=== PATIENT | female | born 1990 | race Caucasian/White ===

== ENCOUNTER 2016-07-13 09:00 | Inpatient (IN) | payer OTHER ==
--- NOTE | ~2016-07-13 | HP ---
Unit #: [id number] #: [id number] Patient: TIA VALLECILLO [id number] [place] [address] [id number] MR#: [id number] NAME: TIA VALLECILLO. ROOM: P173 Age: 25 Sex: F Admission Date: 07/13/2016 : 1990 Attending Physician: Dagoberto Jeter M.D. Admitting Physician: Dagoberto Jeter M.D. Primary Care Physician: Primary Care Physician No HISTORY AND PHYSICAL HISTORY OF PRESENT ILLNESS Tia is a 25 year old admitted to [facility] because of her continued poly illicit substance abuse which includes heroin, benzodiazepines and marijuana. She has had other admissions to this facility for the same. PAST MEDICAL HISTORY 1. Long history of poly illicit substance abuse to include IV heroin. 2. Hepatitis C. PAST SURGICAL HISTORY Nothing reported. ALLERGIES No known drug allergies. SOCIAL HISTORY Smokes one pack per day. Denies alcohol. Admits to a long history of opioid abuse to include IV heroin. She also abuses benzodiazepines. FAMILY HISTORY Medically noncontributory. REVIEW OF SYSTEMS CONSTITUTIONAL: No fever or chills. HEENT: Denies any sore throat, ear pain or runny nose. CARDIOVASCULAR: Denies chest pain, irregular heart rhythm or palpitations. CHEST: Denies shortness of breath or cough. No hemoptysis. GASTROINTESTINAL: Denies nausea, vomiting, diarrhea or chronic constipation. ENDOCRINE: Denies history of increased thirst or urination. No recent significant weight loss or gain. GENITOURINARY: Denies dysuria, frequency, or hematuria. SKIN: Denies any rashes. HEMATOLOGIC: Denies history of increased bleeding or bruising. MUSCULOSKELETAL: Denies any hot, swollen joints. No generalized muscle pain. NEUROLOGIC: Denies problems with vision or speech. No frequent, severe headaches. No numbness, tingling or weakness in any extremities. Denies loss of bladder or bowel control. CURRENT MEDICATIONS Detox protocol Unit #: [id number] #: [id number] Patient: TIA VALLECILLO PHYSICAL EXAMINATION GENERAL: Alert, well-nourished, in no apparent distress. VITAL SIGNS: Blood pressure 144/86, heart rate 76, respirations 16, temperature 98.6. WEIGHT: 197 pounds. HEIGHT: 5'9". SKIN: Warm and dry without rash or lesion. HEENT: Normocephalic. TMs not viewed. Oral and nasal passages clear. Conjunctivae clear. Pupils equal, round and reactive to light and accommodation. Extraocular movements intact. NECK: Supple without lymphadenopathy or thyromegaly. HEART: Regular rate and rhythm without murmur. LUNGS: Clear. ABDOMEN: Soft, nontender. : Not done. EXTREMITIES: No evidence of cyanosis, clubbing or edema. Moves all extremities without focal deficit. NEUROLOGICAL: Grossly within normal limits. Cranial Nerves: II: Visual williamson are intact. III, IV AND : Extraocular movements are intact. Pupils are equal, round and reactive to light. V: Facial sensation is grossly normal. VII: Facial movements and expression are normal. VIII: Auditory acuity grossly intact. IX, X: Uvula is midline. Phonation is normal. XI: Patient shrugs shoulders and turns head normally. XII: Tongue protrudes in the midline. Sensory and Motor Function: Sensory and motor sensation is grossly normal. Motor: moves all extremities well. Coordination: Gait is normal. Deep Tendon Reflexes: Intact. IMPRESSION Psychiatric admission RECOMMENDATIONS PSYCHIATRIC: Per psychiatrist. MEDICAL: I see no contraindications to participating in facility's activities. MEDICAL PROGNOSIS Good. MEDICAL CONDITION Stable. Dictated by... Concha Cabrera PNiharikaANiharika-Tameka. for Parth Gray/allen TD: 07/14/2016 01:18 JOB #: [id number] Unit #: [id number] #: [id number] Patient: TIA VALLECILLO HISTORY AND PHYSICAL Page 1 of 1 X Concha Cabrera HISTORY AND PHYSICAL
--- NOTE | ~2016-07-13 | DS ---
Unit #: [id number] #: [id number] Patient: TIA VALLECILLO [id number] [place] [address] [id number] MR#: [id number] NAME: TIA VALLECILLO. ROOM: P173 Age: 26 Sex: F Admission Date: 07/13/2016 : 1990 Discharge Date: 07/15/2016 Attending Physician: Dagoberto Jeter M.D. Primary Care Physician: Primary Care Physician No DISCHARGE SUMMARY REASON FOR ADMISSION Kate is a 26-year-old woman with a history of polysubstance dependence, who had relapsed on heroin with the occasional use of illicit benzodiazepines and cannabis. She had vague suicidal ideation with no specific plan or intent and was admitted for detox. DIAGNOSTIC STUDIES LABORATORY RESULTS: Please see hospital chart. HOSPITAL COURSE The patient was admitted and placed on the opioid detox protocol. Benzodiazepine detox symptoms were not noted and an antidepressant medication was declined by the patient. She had made plans to go to the [facility] in [facility] at the time of discharge and had completed detox with no significant adverse effects. DISCHARGE DIAGNOSES AXIS I: Opioid dependence withdrawal, uncomplicated; benzodiazepine abuse. AXIS II: No diagnosis. AXIS III: Polysubstance withdrawal, hepatitis C. AXIS IV: AXIS V: DISCHARGE INSTRUCTIONS Follow up with [facility]. DISCHARGE MEDICATIONS None. CONDITION AT DISCHARGE Fair. PROGNOSIS Fair. DIET AND ACTIVITY Ad jenni. Dictated by... Dagoberto Jeter M.D. Unit #: [id number] #: [id number] Patient: TIA VALLECILLO [facility]/modl TD: 09/17/2016 14:51 JOB #: [id number] DISCHARGE SUMMARY Page 1 of 1 X Dagoberto Jeter MD X DISCHARGE SUMMARY
--- NOTE | ~2016-07-13 | PA ---
Unit #: [id number] #: [id number] Patient: TIA VALLECILLO [id number] [place] [address] [id number] I MR#: [id number] NAME: TIA VALLECILLO. ROOM: P173 Age: 26 Sex: F Admission Date: 07/13/2016 : 1990 Date of Assessment: 07/14/2016 Attending Physician: Dagoberto Jeter M.D. Admitting Physician: Dagoberto Jeter M.D. Primary Care Physician: Primary Care Physician No PSYCHIATRIC ASSESSMENT DATE OF SERVICE 07/14/2016. INFORMANTS The patient reliable; OLOP, reliable. CHIEF COMPLAINT Ongoing substance abuse. HISTORY OF PRESENT ILLNESS Ms. Vallecillo is a 26-year-old woman with one previous admission, who reports that she is a daily heroin user and has been using illicit alprazolam and marijuana as well. She had suicidal ideation with no specific plan and was admitted for detox. PAST PSYCHIATRIC HISTORY Last admission was in 08/2014. FAMILY PSYCHIATRIC HISTORY The patient denies a family history of mental illness or substance abuse. SOCIAL HISTORY Please see previous assessments. PAST MEDICAL HISTORY No chronic medical problems. MEDICATIONS None. ALLERGIES No known medication allergies. SUBSTANCE ABUSE HISTORY Please see previous assessments for her extensive history of chemical dependence. MENTAL STATUS EXAMINATION The patient presented as a mildly disheveled woman, who appeared her stated age. She was cooperative with the examination. Her speech was spontaneous and easily understood. Musculoskeletal examination was calm. Her mood was irritable with a congruent affect. She was alert and fully oriented. Her memory and concentration were fair. Her thought processes Unit #: [id number] #: [id number] Patient: TIA VALLECILLO were goal directed with no active psychosis. She denied suicidal ideation, intent, or plan. Insight and judgment, fair. Fund of knowledge and abstraction, fair. ASSETS AND LIABILITIES The patient is in fairly good health and knows local resources. Liabilities include difficulty maintaining sobriety, unstable housing, and income. ADMITTING DIAGNOSES AXIS I: Opiate dependence withdrawal, uncomplicated; benzodiazepine abuse. AXIS II: No diagnosis. AXIS III: Polysubstance withdrawal, hepatitis C. AXIS IV: AXIS V: PSYCHIATRIC PLAN The patient was admitted and placed on the opioid detox protocol. She will be monitored for benzodiazepine detox symptoms and provided as needed. She will enroll in dual diagnosis groups and activities. TREATMENT GOALS Resolution of intoxication, improvement in insight, and improvement in coping skills. DISCHARGE PLANNING Follow up with chemical dependence programing through community mental health. ESTIMATED LENGTH OF STAY 5 days. Dictated by... Dagoberto Jeter M.D. BLAIR/lorenzo TD: 09/17/2016 14:48 JOB #: [id number] PSYCHIATRIC ASSESSMENT Page 1 of 1 X Dagoberto Jeter MD X PSYCHIATRIC ASSESSMENT
[~2016-07-13 09:00] MED LIST: BACTRIM DS TABL1 TA1 PO; CLEOCIN PO; TYLENOL #3 PO; ZITHROMAX1 G/PKT PO
[2016-07-14 09:43] LABS: URINE APPEARANCE CLEAR; URINE BILIRUBIN NEG (NEG); URINE BLOOD NEG (NEG); URINE COLOR YELLOW; URINE GLUCOSE NEG (NEG); URINE KETONE NEG (NEG); URINE LEUKOCYTE ESTERASE 2+ (NEG); URINE NITRATE NEG (NEG); URINE PROTEIN NEG (NEG); URINE SPECIFIC GRAVITY 1.011 (1.003-1.035)
[2016-07-14 09:46] LABS: U HYALINE CASTS AUWI 0-2 /[LPF]
[2016-07-14 09:56] LABS: URINE SQUAMOUS EPITHELIAL CELL FEW /[HPF]
[2016-07-14 09:58] LABS: URINE BACTERIA AUWI NEG (NEGATIVE)
[2016-07-14 10:30] LABS: AMPHETAMINE NEG (NEG); BARBITURATES NEG (NEG); BENZODIAZEPINES NEG (NEG); COCAINE NEG (NEG); MARIJUANA POS (NEG); OPIATES NEG (NEG); TRICYCLIC ANTIDEPRESSANTS NEG (NEG); U METHADONE NEG (NEG)
== END 2016-07-15 13:30 | disposition home or self-care (01) | DRG 897 ==
LOC: P1E 13:46
PROVIDERS: Psychiatry & Neurology Psychiatry
PROC: HZ2ZZZZ Detoxification Services for Substance Abuse Treatment (ICD-10-PCS; principal; 2016-07-13)
DX: F11.23 Opioid dependence with withdrawal (principal); F13.10 Sedative, hypnotic or anxiolytic abuse, uncomplicated; B19.20 Unspecified viral hepatitis C without hepatic coma; F17.210 Nicotine dependence, cigarettes, uncomplicated
CPT/HCPCS: 80307; 81003

== ENCOUNTER 2016-07-17 18:29 | Emergency (ER) | payer OTHER ==
--- NOTE | ~2016-07-17 | CR63 ---
[facility] A Service of [facility] & [facility] RADIOLOGY TEXT RESULTS PATIENT: TIA VALLECILLO LOCATION: [facility] : [birth year] UNIT #: [id number] AGE: [address]: Concha Joy APRN SEX: F ORDER DR: [id number] [facility] [address] [facility] [address] [facility] [address] [facility] [place], [place] [address] [id number] MR#: [id number] Acc #: [id number] NAME: TIA VALLECILLO : 1990 SEX: F STUDY DATE/TIME: 07/17/2016 22:03 UNIT: [facility] ROOM: STUDY DESCRIPTION: CR Chest 2 View Attending Physician: Concha Joy A.P.R.N. Ordering Physician: Concha Joy A.P.R.N. Primary Care Physician: No Primary Care Physician MEDICAL IMAGING REPORT This report is preliminary unless electronic signature is present EXAM PA and lateral chest HISTORY Shortness of air and fever and cough and congestion and left side chest pain for 2 days. FINDINGS 2 views of the chest demonstrate a very small left pleural effusion with mild left basilar atelectasis. Low lung volumes. Cardiac size and pulmonary vascularity are within normal limits. Remainder of the lungs are clear. IMPRESSION Small left pleural effusion with mild left basilar infiltrate or atelectasis. The remainder of the chest is negative. Dictated by... Feliz Sloan M.D. THIS IS AN ELECTRONICALLY VERIFIED REPORT Feliz Sloan M.D. at 07/18/2016 3:00 PM DFL/juan TD: 07/18/2016 04:35 JOB #: [id number] MEDICAL IMAGING REPORT Page 1 of 1 COPY
[2016-07-17 21:08] LABS: INFLUENZA A NEG (NEG); INFLUENZA B NEG (NEG)
[2016-07-17 21:37] LABS: URINE SOURCE CLEAN CATCH
[2016-07-17 21:45] LABS: URINE APPEARANCE CLOUDY; URINE BLOOD 3+ (NEG); URINE COLOR DK YELLOW; URINE GLUCOSE NEG (NEG); URINE KETONE NEG (NEG); URINE LEUKOCYTE ESTERASE 1+ (NEG); URINE NITRATE POS (NEG); URINE PH 5.5 (5-8); URINE PROTEIN 2+ (NEG); URINE SPECIFIC GRAVITY 1.029 (1.003-1.035)
[2016-07-17 21:46] LABS: CULTURE INDICATED? YES; URINE BACTERIA AUWI NEG (NEGATIVE); URINE SQUAMOUS EPITHELIAL CELL FEW /[HPF]
[2016-07-17 22:17] LABS: BASOPHIL% 0.3 % (0-2.5); HEMATOCRIT 34.8 % (35.0-45.0); HEMOGLOBIN 11.8 gm/dL (12.0-16.0); LYMPHOCYTE# 0.8 X10e3 (1.0-3.5); LYMPHOCYTE% 10.4 % (17.0-45.0); MEAN CELL VOLUME 85.2 FL (83-96); MEAN CORPUSCULAR HEMOGLOBIN 28.8 PG (28-34); MEAN CORPUSCULAR HGB CONC 33.8 g/dL (30-36); MEAN PLATELET VOLUME 9.8 FL (6.5-11.5); MONOCYTE# 0.6 X10e3 (0-1.0); NEUTROPHIL# 6.6 X10e3 (1.5-7.1); NEUTROPHIL% 82.3 % (40-75); RED BLOOD COUNT 4.08 X10e (3.90-5.30); RED CELL DISTRIBUTION WIDTH 12.2 % (11.0-15.5)
[2016-07-17 22:24] LABS: URINE BILIRUBIN POS (NEG); URINE MUCUS PRESENT
[2016-07-17 22:32] LABS: ALBUMIN SERUM 3.6 g/dL (3.5-5.0); BILIRUBIN,TOTAL 1.4 mg/dL (0.2-2.0); BUN/CREATININE RATIO 12.5; CALCIUM SERUM 8.5 mg/dL (8.4-10.2); CREATININE SERUM 0.8 mg/dL (0.6-1.4); POTASSIUM 3.2 mmol/L (3.5-5.1); PROTEIN TOTAL SERUM 7.4 g/dL (6.0-8.3)
[2016-07-17 22:40] LABS: DIFF IND YES; PLATELET COUNT 94 X10e3 (140-420)
[2016-07-17 22:43] LABS: OVALOCYTES PRESENT; PLATELET ESTIMATE DECREASED (NORMAL); POIKILOCYTOSIS SL
== END 2016-07-18 01:52 | disposition home or self-care (01) ==
LOC: CED 18:29 → CFTX 20:32 → CED 20:32 → CFTX 07-18 01:52
PROVIDERS: Nurse Practitioner
DX: J18.9 Pneumonia, unspecified organism (principal); N39.0 Urinary tract infection, site not specified; J06.9 Acute upper respiratory infection, unspecified; F17.210 Nicotine dependence, cigarettes, uncomplicated
CPT/HCPCS: 36415; 71020; 80053; 81003; 84703; 85025; 87086; 87651; 87804; 96361; 96374; 96375; 99284; J1200; J2765

== ENCOUNTER 2016-07-22 10:09 | Inpatient (IN) | payer OTHER ==
--- NOTE | ~2016-07-22 | HP ---
Unit #: [id number] #: [id number] Patient: TIA VALLECILLO [id number] [address] [address] [id number] E MR#: [id number] NAME: TIA VALLECILLO. ROOM: Age: 25 Sex: F Admission Date: 07/22/2016 : 1990 Attending Physician: Moe Cope M.D. Referring Physician: Self Referral-Refer Use Only Primary Care Physician: No Primary Care Physician HISTORY AND PHYSICAL CHIEF COMPLAINT Fever. HISTORY OF PRESENT ILLNESS The patient is a 25-year-old female with a history of substance abuse which includes heroin, benzodiazepine and marijuana and hepatitis C. The patient presented to the emergency room with worsening shortness of air and fever. The patient was recently seen in the emergency room on 07/17/2016 and diagnosed with pneumonia. She was discharged home on Zithromax. The patient presented today with a fever of 103.2 and worsening shortness of breath. The patient last used IV drugs three days ago with heroin. The patient had a CT of the chest that showed multiple cavitary lesions concerning for septic emboli and is being admitted for that above reasons. PAST MEDICAL HISTORY 1. History of polysubstance abuse to include IV heroin. 2. Hepatitis C. PAST SURGICAL HISTORY None. SOCIAL HISTORY The patient smokes one pack per day. Denies alcohol. Admits to a long history of opiate abuse to include IV heroin. She also uses benzodiazepines. FAMILY HISTORY Reviewed and none. ALLERGIES No known drug allergies. HOME MEDICATIONS Zithromax. REVIEW OF SYSTEMS Fourteen point review of systems was performed and only pertinent positive findings are described above. The remaining are negative. PHYSICAL EXAMINATION GENERAL: The patient is lying on the bed, not in acute distress. VITALS: Temperature 99.5, pulse 115, respiratory rate 22, blood pressure 122/72, oxygen saturation 96% on room air. Unit #: [id number] #: [id number] Patient: TIA VALLECILLO HEENT: Head atraumatic, normocephalic. Pupils equal, round and reactive to light and accommodation. Extraocular movements are intact. Dry mucous membranes. NECK: Supple. LUNGS: Decreased air entry at the bases. Positive for rhonchi. HEART: Regular rate and rhythm. Positive for murmur. ABDOMEN: Soft. Positive bowel sounds. EXTREMITIES: The patient has track yi on the left upper extremity with induration and bruises. No cyanosis. No clubbing. NEUROLOGIC: Alert, awake and oriented. No gross focal motor deficits. DIAGNOSTIC STUDIES IMAGING: CT of the chest shows there is no evidence of acute pulmonary embolism. However, the patient has multiple carotid nodules in both lungs of varying sizes with associated small left pleural effusion and trace pericardial fluid. The findings are concerning for septic emboli, less likely atypical infection. Evaluate for endocarditis. Splenomegaly with enlarged lymph nodes at the chester hepatis partially imaged on this exam. While these could represent reactive changes, the presence of a lymphoproliferative disorder cannot be excluded. Suggest treatment for the underlying acute pulmonary process. LABORATORY: Glucose 114, BUN 10, creatinine 0.7, sodium 129, potassium 2.9, chloride 94, bicarb 22, calcium 8.2, albumin 2.9, AST 71, ALT 75, alkaline phosphatase 90, lipase 23, lactic acid 2.3. INR 1.2. White blood cell count 5.1, hemoglobin 11.8, hematocrit 35.7, platelets 94, neutrophils 37.1. Urine tox is positive for marijuana. Urinalysis shows trace leukocyte esterase, 3+ blood and 5-10 urine RBCs, 5-10 urine WBCs. ASSESSMENT 1. Septic emboli. 2. Sepsis. 3. IV drug abuse. 4. Hypokalemia. 5. Hyponatremia. PLAN Admit the patient to inpatient with telemetry. Continue sepsis protocol. Continue with IV antibiotics to treat pneumonia with cefepime and Zithromax. Follow with echo and transesophageal echo to rule out endocarditis. Replace potassium per protocol. Pulmonary consult with Dr. Interiano for a bronchoscopy. Further recommendations will follow. Dictated by Parth Jain TD: 07/22/2016 14:10 JOB #: [id number] Unit #: [id number] #: [id number] Patient: TIA VALLECILLO HISTORY AND PHYSICAL Page 1 of 1 X X HISTORY AND PHYSICAL
--- NOTE | ~2016-07-22 | CR72 ---
[facility] A Service of [facility] & [facility] RADIOLOGY TEXT RESULTS PATIENT: TIA VALLECILLO LOCATION: [facility] : [birth year] UNIT #: [id number] AGE: [address]: Moe Cope MD SEX: F ORDER DR: [id number] [facility] [address] [place], [place] [address] [id number] E MR#: [id number] Acc #: [id number] NAME: TIA VALLECILLO : 1990 SEX: F STUDY DATE/TIME: 07/22/2016 11:37 UNIT: [facility] ROOM: STUDY DESCRIPTION: CR Chest Single View Portable Attending Physician: Moe Cope M.D. Referring Physician: Self Referral-Refer Use Only Ordering Physician: Moe Cope M.D. Primary Care Physician: Primary Care Physician No MEDICAL IMAGING REPORT This report is preliminary unless electronic signature is present EXAM Chest portable 07/22/2016 1137 hours HISTORY 25-year-old with shortness of air, fever and chest pain for over 1 week. COMPARISON 07/17/2016. FINDINGS Single portable upright view demonstrates slightly low lung volumes. Heart size is within normal limits. The mediastinal and hilar contours are normal. There is new left suprahilar airspace density concerning for pneumonia. Question new patchy density at the left base as well with a small left effusion similar to prior study. IMPRESSION 1. There is new patchy airspace density in the left suprahilar region as compared to the recent film of 07/17/2016 most consistent with acute left upper lobe pneumonia. 2. There is hazy to patchy density remaining at the left base similar to 07/17/2016 which could represent atelectasis or pneumonia. There is stable blunting of the left costophrenic sulcus suggesting pleural thickening or a stable small left effusion. 3. The right lung is clear. STAT * RESULT Dictated by... Izzy Garg M.D. [facility] A Service of [facility] & [facility] RADIOLOGY TEXT RESULTS PATIENT: [facility]IA VAL[facility]CILLO [id number] [birth year] UNIT #: [id number] AGE: [address]: Moe Cope MD SEX: F ORDER DR: THIS IS AN ELECTRONICALLY VERIFIED REPORT Izzy Garg M.D. at 07/22/2016 2:29 PM AUNDREA/kacy TD: 07/22/2016 12:03 JOB #: [id number] MEDICAL IMAGING REPORT Page 1 of 1 COPY
--- NOTE | ~2016-07-22 | XA166 ---
[facility] A Service of [facility] & [facility] RADIOLOGY TEXT RESULTS PATIENT: TIA VALLECILLO LOCATION: [facility] 462-01 : [birth year] UNIT #: [id number] AGE: [address]: Nely Nielsen MD SEX: F ORDER DR: [id number] [facility] [address] [place], [place] [address] [id number] I MR#: [id number] Acc #: [id number] NAME: TIA VALLECILLO : 1990 SEX: F STUDY DATE/TIME: 07/27/2016 7:59 UNIT: [facility] ROOM: [facility] STUDY DESCRIPTION: XA PICC Line Placement WO Port Attending Physician: Nely Nielsen M.D. Referring Physician: Self Referral-Refer Use Only Ordering Physician: Ed Doctor [id number] [facility] Primary Care Physician: Primary Care Physician No MEDICAL IMAGING REPORT This report is preliminary unless electronic signature is present EXAM Right side PICC line placement. INDICATIONS Need for IV access for septic emboli. The procedure was explained to the patient including risks, benefits, potential complications, potential for alternative forms of treatment and informed consent was obtained prior to initiating procedure a formal time-out procedure was performed. Using all elements of maximal sterile barrier technique including hand hygiene, caps, sterile gowns, gloves and masks. Right arm was prepped with 2% chlorhexidine for cutaneous antisepsis and covered with large sterile sheet. Real-time sterile ultrasound guidance was used to localize the right hip brachial vein which was found be patent and compressible. Hard copy ultrasound was obtained. After localization with 1% Xylocaine the vein was punctured using real-time sterile some guidance and an 018 guidewire was advanced the superior vena cava under fluoroscopic guidance. Peel-away sheath was advanced over wire, catheter was measured and trimmed and was advanced over the wire, I was unable to advance it past the right axillary vein and subsequently advanced a Savvy balloon catheter over the wire. Multiple attempts were made to inflate the balloon but I was unable to eliminate the waist within the balloon. At this point I did attempt to advance the catheter over the wire but again was unable to pass it past this apparent stricture within the vein. It was subsequently trimmed 12 cm in position within the right axillary vein. Following placement of the catheter it flushed and aspirated easily. Total fluoroscopy time was 0.6 minutes AK was 2 mg. IMPRESSION 1. Placement of a 12 cm midline PICC within the right axillary vein. Ultrasound and fluoroscopy were used during placement of the catheter [facility] A Service of [facility] RADIOLOGY TEXT RESULTS PATIENT: TIA VALLECILLO LOCATION: [facility] 462-01 : [birth year] UNIT #: [id number] AGE: [address]: Nely Nielsen MD SEX: F ORDER DR: and permanent images were saved. 2. Angioplasty of the right axillary vein was performed. There is a persistent waist in the balloon despite multiple attempts at reinflation. This corresponds to an apparent stricture within the vein. 1. Dictated by... Rosaura Luna M.D. THIS IS AN ELECTRONICALLY VERIFIED REPORT Rosaura Luna M.D. at 07/28/2016 5:53 PM AFF/dj TD: 07/28/2016 08:37 JOB #: [id number] MEDICAL IMAGING REPORT Page 1 of 1 COPY
--- NOTE | ~2016-07-22 | CT16 ---
[facility] A Service of [facility] RADIOLOGY TEXT RESULTS PATIENT: TIA VALLECILLO LOCATION: [facility] : [birth year] UNIT #: [id number] AGE: [address]: Moe Cope MD SEX: F ORDER DR: [id number] [facility] [address] [place], [place] [address] [id number] MR#: [id number] Acc #: [id number] NAME: TIA VALLECILLO : 1990 SEX: F STUDY DATE/TIME: 07/22/2016 12:32 UNIT: [facility] ROOM: STUDY DESCRIPTION: CT Angio Chest for PE Attending Physician: Moe Cope M.D. Referring Physician: Self Referral-Refer Use Only Ordering Physician: Moe Cope M.D. Primary Care Physician: Primary Care Physician No MEDICAL IMAGING REPORT This report is preliminary unless electronic signature is present EXAM CT angiogram of the chest for pulmonary embolism, 07/22/2016 at 12:32 hours HISTORY 25-year-old with fever, shortness of air, hemoptysis for 1 week. COMPARISON Chest x-ray 07/22/2016 and 07/17/2016. No prior chest CT TECHNIQUE Dynamic helical CT angiographic images were obtained from the thoracic inlet through the adrenal glands. 3-D sagittal and coronal reconstructions were performed. Contrast was Isovue-370, 80 mL IV. Total exam DLP 666 mGy-cm This CT exam was performed with one or more of the following radiation dose reduction techniques: automatic exposure control, adjustment of mA and/or kV according to patient size, and iterative reconstruction. FINDINGS Images through the thoracic inlet demonstrate no thyroid lesion or adenopathy. Images through the chest demonstrate diagnostic quality opacification of the pulmonary arteries which are normal in caliber. There are no filling defects to suggest the presence of pulmonary emboli. The aorta is normal in caliber without dissection. There is a small amount of pericardial fluid inferiorly to the left of midline. There is a moderate left pleural effusion with no definite right pleural effusion. The lungs are abnormal with multiple cavitary nodular areas seen. This includes a 3.3 x 2.9 cm area in the superior segment of the left lower lobe corresponding to the left suprahilar density seen on today's chest STS. [facility] A Service of [facility] RADIOLOGY TEXT RESULTS PATIENT: TIA VALLECILLO LOCATION: [facility] : [birth year] UNIT #: [id number] AGE: [address]: Anatoliy,Moe Bueno MD SEX: F ORDER DR: film. In addition there is a non-cavitary nodular area measuring 2.4 x 2.0 cm at the lateral left lung base. Cavitary lesion posterior left lung base 2.7 x 2.5 cm. There are multiple lesions in the right lung as well including an abnormal area in the medial upper lobe parasternal region measuring 2.3 x 2.1 cm. There is a cavitary lesion in the superior segment of the right lower lobe measuring 1.8 cm. There is a 1.0 cm lesion in the far inferior right upper lobe on image 73. There are additional small 1.0 cm cavitary lesions in the lower lobe posteromedially. There is a 2.5 cm thin-walled cavitary lesion posterior to the dome of the right hemidiaphragm and a 2.1 cm lesion with cavitation anterior to the dome of the right hemidiaphragm. This nodule is likely in the right middle lobe. The findings are concerning for septic emboli. Atypical infection should be considered. Evaluate for endocarditis. Limited views through the upper abdomen demonstrate splenomegaly. There are enlarged lymph nodes at the chester hepatis. These could be reactive changes. Evaluate for possible lymphoproliferative disorder. IMPRESSION 1. There is no evidence of acute pulmonary embolism, however the patient has multiple cavitary nodules in both lungs of varying sizes with associated small left pleural effusion and trace pericardial fluid. The findings are concerning for septic emboli, less likely atypical infection. Evaluate for endocarditis. 2. Splenomegaly with enlarged lymph nodes at the chester hepatis partially imaged on this exam. While these could represent reactive changes, the presence of a lymphoproliferative disorder cannot be excluded. Suggest treatment for the underlying acute pulmonary process. Consider followup CT abdomen pelvis to reassess for pathologic adenopathy. COMMENT Findings were telephoned to and discussed directly with Dr. Cope just prior to this dictation. STAT * RESULT Dictated by... Izzy Garg M.D. THIS IS AN ELECTRONICALLY VERIFIED REPORT Izzy Garg M.D. at 07/22/2016 2:29 PM AUNDREA/oswaldo TD: 07/22/2016 13:09 JOB #: [id number] MEDICAL [facility]AGING [facility] A Service of [facility] RADIOLOGY TEXT RESULTS PATIENT: TIA VALLECILLO LOCATION: [facility] #: [id number] : [birth year] UNIT #: [id number] AGE: [address]: Moe Cope MD SEX: F ORDER DR: Page 1 of 1 COPY
--- NOTE | ~2016-07-22 | EKG ---
PATIENT: TIA VALLECILLO UNIT #: [id number] Ventricular Rate: 102 BPM Atrial Rate: 102 BPM P-R Interval: 164 ms QRS Duration: 82 ms Q-T Interval: 328 ms QTC Calculation(Bezet): 427 ms P [place]: 38 degrees Calculated R [place]: 46 degrees Calculated T [place]: 43 degrees Diagnosis Line: Sinus tachycardia Diagnosis Line: Otherwise normal ECG Diagnosis Line: When compared with ECG of 26-MAY-2015 21:00, Diagnosis Line: Vent. rate has increased BY 35 BPM Diagnosis Line: Confirmed by MAAME QUEZADA MD ([id number]) on 07/23/2016 Diagnosis Line: 10:36:15 AM INTERPRETING MD: DAMIEN BROWN
--- NOTE | ~2016-07-22 | CO ---
Unit #: [id number] #: [id number] Patient: TIA VALLECILLO [id number] [address] [address] [id number] I MR#: [id number] NAME: TIA VALLECILLO. ROOM: 462 Age: 25 Sex: F Admission Date: 07/22/2016 : 1990 Attending Physician: Nely Nielsen M.D. Primary Care Physician: Beatrice Primary Care Physician Consultation Date: 07/24/2016 CONSULTATION REPORT REQUESTING PHYSICIAN Dr. Nielsen. REASON FOR CONSULTATION Staphylococcus sepsis. HISTORY OF PRESENT ILLNESS This is a 25-year-old white female with a history of polysubstance abuse including intravenous heroin, who was admitted with fever, chills, cough, and positive blood culture for Staphylococcus aureus. Three days prior to that, she visited ER for what appears to be fever and cough and was sent home on Zithromax. Her symptoms did not improve. Therefore, she came back to the hospital and was noted to have bilateral pulmonary septic emboli with documented fever. Subsequently, blood cultures grew Staphylococcus aureus. She was started on vancomycin, cefepime, and Zithromax. We were asked to see her for further evaluation. Patient currently stable. Her fever is improving. She did not have any chest pain, but she still had feeling of chills and cough. There are no skin rashes or abscesses. She denies any back pain, any swollen painful joints, headache, or mental status changes. PAST MEDICAL HISTORY 1. Hepatitis C. 2. Polysubstance abuse. PAST SURGICAL HISTORY Previous surgeries - none. CURRENT MEDICATIONS 1. Vancomycin. 2. Lovenox. 3. Diphenhydramine. 4. Tylenol. 5. Zofran. 6. Proventil. 7. Humibid. 8. Cefepime. 9. Zithromax. DRUG ALLERGIES None. PERSONAL HISTORY She admits to IV drug use as well as other drugs including meth. She Unit #: [id number] #: [id number] Patient: TIA VALLECILLO smokes cigarettes daily. No history of alcohol abuse. FAMILY HISTORY Negative. SYSTEMIC REVIEW Fever, chills, cough, sputum production. No hemoptysis. Denies any headache, back pain, abdominal pain, chest pain, dysuria, diarrhea, or mental status changes, or skin rashes. PHYSICAL EXAMINATION GENERAL: Reveals a young white female who is rather obese. She is wide awake and alert and does not appear to be in any distress. VITAL SIGNS: Current temperature is 97.9, heart rate 86, respirations 16, blood pressure 126/71. She had a T-max of 101.1 on admission. NECK: Her neck is (1) supple. There are no lymph nodes, JVD, or edema. HEENT: Oral hygiene is poor. Front left incisor tooth is broken and partially impacted. EXTREMITIES: There are IV needle tracts on the right arm, especially in the cubital fossa. LUNGS: Clear to percussion and auscultation. HEART: Heart sounds are normal. There are no murmurs. ABDOMEN: Grossly obese, soft, nontender without organomegaly or ascites. Bowel sounds are normal. SPINE: There is no spinal tenderness. NEUROLOGIC: Nonfocal. DIAGNOSTIC STUDIES LABORATORY: Urine culture is negative. Blood culture 2/2 are positive for MSSA. MAHESH shows (2) tricuspid valve vegetation. BMP is unremarkable. White count 5.3, hemoglobin 9.7, platelets 64,000. Lactic acid 1.1. Urinalysis shows 5-10 WBCs, 5-10 RBCs. IMAGING: CT chest shows multiple septic infarcts with cavitation. 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 RECOMMENDATIONS Will repeat blood cultures to document clearance of bacteremia. Change old antibiotics to nafcillin monotherapy 12 g daily as constant infusion. Supportive care should be continued. Prognosis is guarded. Further recommendations will follow. Dictated by... Parth Perry TD: 07/24/2016 15:17 JOB #: [id number] Unit #: [id number] #: [id number] Patient: TIA VALLECILLO CONSULTATION REPORT Page 1 of 1 X Jamaal Duran MD CONSULTATION REPORT
--- NOTE | ~2016-07-22 | DS ---
Unit #: [id number] #: [id number] Patient: TIA VALLECILLO [id number] [address] [address] [id number] I MR#: [id number] NAME: TIA VALLECILLO ROOM: 462 Age: 25 Sex: F Admission Date: 07/22/2016 : 1990 Discharge Date: 07/26/2016 Attending Physician: Nely Nielsen M.D. Referring Physician: Self Referral-Refer Use Only Primary Care Physician: No Primary Care Physician DISCHARGE SUMMARY HISTORY OF PRESENT ILLNESS Please note: Patient left AMA at approximately 1500. Patient is a 25-year-old female with underlying history of substance abuse, heroin, benzodiazepines, marijuana, prior history of hepatitis C. She was admitted and through her hospital course was diagnosed ultimately with MSSA bacteremia as well as tricuspid valve endocarditis. ID services were working on IV antibiotic coverage for her to be discharged home on. Ultimately, IV access became an issue secondary to difficulty obtaining IV access. Therefore, appropriate arrangements were being conducted as an outpatient for further evaluation. On July 26, 2016 at approximately 1500, patient elected to leave AMA. Discharge medications are unknown at time of discharge. FINAL DISCHARGE DIAGNOSES 1. Polysubstance abuse. 2. Methicillin-sensitive Staphylococcus aureus bacteremia. 3. Ongoing IV drug abuse. 4. Poor insight into disease process. 5. Hepatitis C. 6. Tricuspid valve endocarditis. DISCHARGE MEDICATIONS Unknown. Dictated by... Parth Gray/dorys TD: 07/27/2016 15:34 JOB #: [id number] DISCHARGE SUMMARY Page 1 of 1 X Nely Nielsen MD X DISCHARGE SUMMARY
--- NOTE | ~2016-07-22 | CO ---
Unit #: [id number] #: [id number] Patient: TIA VALLECILLO [id number] [address] [place], [place] [address] [id number] MR#: [id number] NAME: TIA VALLECILLO. ROOM: 67181 Age: 25 Sex: F Admission Date: 07/22/2016 : 1990 Attending Physician: Samantha Malik M.D. Consultation Date: 07/22/2016 CONSULTATION REPORT REASON FOR CONSULTATION Septic emboli. CHIEF COMPLAINT Fever. HISTORY OF PRESENT ILLNESS Patient is a 25-year-old female with a past medical history of IV drug use, used heroin two days ago, and hepatitis C, who presents to the emergency room with the complaint of cough, shortness of breath, and fever. CT chest showed bilateral septic emboli. I am seeing her at the bedside. Currently, on room air she is saturating 100%. REVIEW OF SYSTEMS Positive for pallor. No edema, no cyanosis, and no jaundice. The rest is per History of Present Illness. The rest of a 12-point review of systems has been reviewed and is negative. PAST MEDICAL HISTORY 1. Hepatitis C. 2. Polysubstance abuse. SOCIAL HISTORY IV drug use. FAMILY HISTORY None as per record. MEDICATIONS Zithromax. PHYSICAL EXAMINATION VITAL SIGNS: Temperature 99, pulse 110, respirations 16, and blood pressure 110/70. NEUROLOGICAL: Awake, alert, and oriented, with no neurological deficits. HEENT: Pupils equal, round, and reactive to light and accommodation. Extraocular movements are intact. NECK: Supple. No JVD. CHEST: Bilateral air entry, bilateral mild rhonchi. GASTROINTESTINAL: Nontender and soft. Bowel sounds positive. EXTREMITIES: No edema. DIAGNOSTIC STUDIES LABORATORY: Reviewed. Unit #: [id number] #: [id number] Patient: TIA VALLECILLO IMAGING: Reviewed. ASSESSMENT 1. Septic emboli. 2. Intravenous drug user. 3. Sepsis. 4. Hypokalemia. PLAN Continue patient on IV fluids. IV antibiotic as per Infectious Disease. A 2D echo. Likely will need Cardiology consultation. Please see orders for detailed plans. Thank you very much for this consultation. Dictated by... Parth Johnson/jodee TD: 07/22/2016 17:52 JOB #: [id number] CONSULTATION REPORT Page 1 of 1 X Clari Interiano MD CONSULTATION REPORT
[2016-07-22 11:55] LABS: URINE SOURCE CLEAN CATCH
[2016-07-22 12:08] LABS: ALBUMIN SERUM 2.9 g/dL (3.5-5.0); BILIRUBIN, DIRECT 0.3 mg/dL (0.0-0.2); BILIRUBIN,INDIRECT 0.7 mg/dL (0.0-0.9); BUN/CREATININE RATIO 14.28; CALCIUM SERUM 8.2 mg/dL (8.4-10.2); CREATININE SERUM 0.7 mg/dL (0.6-1.4); GLOM FILT RATE Estimated 122.1 mL/min (>60); PROTEIN TOTAL SERUM 6.8 g/dL (6.0-8.3)
[2016-07-22 12:10] LABS: POTASSIUM 2.9 mmol/L (3.5-5.1)
[2016-07-22 12:10] LABS: URINE APPEARANCE CLOUDY; URINE BLOOD 3+ (NEG); URINE COLOR DK YELLOW; URINE GLUCOSE NEG (NEG); URINE KETONE TRACE (NEG); URINE LEUKOCYTE ESTERASE TRACE (NEG); URINE NITRATE NEG (NEG); URINE PH 5.5 (5-8); URINE PROTEIN 2+ (NEG); URINE SPECIFIC GRAVITY 1.026 (1.003-1.035)
[2016-07-22 12:12] LABS: CULTURE INDICATED? YES; URINE BACTERIA AUWI NEG (NEGATIVE); URINE SQUAMOUS EPITHELIAL CELL FEW /[HPF]
[2016-07-22 12:18] LABS: BASOPHIL% 0.1 % (0-2.5); EOSINOPHIL% 0.1 % (0.0-7.0); HEMATOCRIT 35.7 % (35.0-45.0); HEMOGLOBIN 11.8 gm/dL (12.0-16.0); LYMPHOCYTE# 0.4 X10e3 (1.0-3.5); LYMPHOCYTE% 7.3 % (17.0-45.0); MEAN CELL VOLUME 86.1 FL (83-96); MEAN CORPUSCULAR HEMOGLOBIN 28.5 PG (28-34); MEAN CORPUSCULAR HGB CONC 33.1 g/dL (30-36); MONOCYTE# 0.3 X10e3 (0-1.0); MONOCYTE% 5.4 % (3.0-12.0); NEUTROPHIL# 4.4 X10e3 (1.5-7.1); NEUTROPHIL% 87.1 % (40-75); PLATELET COUNT 94 X10e3 (140-420); RED BLOOD COUNT 4.15 X10e (3.90-5.30); WHITE BLOOD COUNT 5.1 X10e3 (4.0-10.5)
[2016-07-22 12:19] LABS: DIFF IND YES
[2016-07-22 12:20] LABS: POC - CKMB <1.0 ng/mL (0.0-7.9); POC - TROPONIN <0.05 ng/mL (<=0.05)
[2016-07-22 12:32] LABS: PLATELET ESTIMATE DECREASED (NORMAL)
[2016-07-22 12:32] LABS: URINE BILIRUBIN NEG (NEG)
[2016-07-22 12:34] LABS: URINE MUCUS PRESENT
[2016-07-22 12:36] LABS: INR 1.2; PARTIAL THROMBOPLASTIN TIME 28.6 SECONDS (23.5-31.3); PROTHROMBIN TIME (PATIENT) 12.8 SECONDS (9.6-11.5)
[2016-07-22] MEDS ORDERED: AZITHROMYCIN250 MG PO (13:39)
[2016-07-22] MEDS ORDERED: MACROBID100 M1 PO (13:40)
[2016-07-22] MEDS ORDERED: MUCINEX DM ER1 EACH PO (13:41)
[2016-07-22] MEDS ORDERED: ALBUTEROL17 GM PO (13:43)
[2016-07-24 04:02] LABS: HEMATOCRIT 29.1 % (35.0-45.0); HEMOGLOBIN 9.7 gm/dL (12.0-16.0); MEAN CELL VOLUME 86.9 FL (83-96); MEAN CORPUSCULAR HEMOGLOBIN 28.9 PG (28-34); MEAN CORPUSCULAR HGB CONC 33.3 g/dL (30-36); MEAN PLATELET VOLUME 11.6 FL (6.5-11.5); RED BLOOD COUNT 3.35 X10e (3.90-5.30); RED CELL DISTRIBUTION WIDTH 13.4 % (11.0-15.5); WHITE BLOOD COUNT 5.3 X10e3 (4.0-10.5)
[2016-07-24 08:35] LABS: CALCIUM SERUM 7.9 mg/dL (8.4-10.2); CREATININE SERUM 0.5 mg/dL (0.6-1.4); GLOM FILT RATE Estimated 136.4 mL/min (>60); MAGNESIUM 1.7 mg/dL (1.6-3.0); POTASSIUM 3.5 mmol/L (3.5-5.1)
[2016-07-25 09:23] LABS: MAGNESIUM 1.9 mg/dL (1.6-3.0); POTASSIUM 3.8 mmol/L (3.5-5.1)
== END 2016-07-26 15:40 | disposition left against medical advice (07) | DRG 871 ==
LOC: CED 10:09 → CEDOF 13:52 → C4C 13:52 → CEDOF 15:10 → CED 15:10 → C4C 21:07
PROVIDERS: Emergency Medicine; Family Medicine; Physician Assistant Medical
PROC: B30TZZZ Plain Radiography of Left Pulmonary Artery (ICD-10-PCS; 2016-07-22)
PROC: B30SZZZ Plain Radiography of Right Pulmonary Artery (ICD-10-PCS; 2016-07-22)
PROC: 05HF33Z Insertion of Infusion Device into Left Cephalic Vein, Percutaneous Approach (ICD-10-PCS; principal; 2016-07-23)
PROC: B54NZZA Ultrasonography of Left Upper Extremity Veins, Guidance (ICD-10-PCS; 2016-07-23)
PROC: B24BZZZ Ultrasonography of Heart with Aorta (ICD-10-PCS; 2016-07-23)
PROC: B24BZZ4 Ultrasonography of Heart with Aorta, Transesophageal (ICD-10-PCS; 2016-07-24)
DX: A41.01 Sepsis due to Methicillin susceptible Staphylococcus aureus (principal); I26.90 Septic pulmonary embolism without acute cor pulmonale; I76 Septic arterial embolism; E87.1 Hypo-osmolality and hyponatremia; I07.9 Rheumatic tricuspid valve disease, unspecified; B19.20 Unspecified viral hepatitis C without hepatic coma; F13.10 Sedative, hypnotic or anxiolytic abuse, uncomplicated; F11.10 Opioid abuse, uncomplicated; F12.10 Cannabis abuse, uncomplicated; E87.6 Hypokalemia; F17.210 Nicotine dependence, cigarettes, uncomplicated
CPT/HCPCS: 36415; 71010; 71275; 80048; 80076; 81003; 82553; 83605; 83690; 83735; 84132; 84484; 84703; 85025; 85027; 85610; 85730; 87040; 87077; 87086; 87186; 93005; 93306; 93312; 94760; 96365; 96375; 99285; J0456; J0692; J0696; J1580; J1650; J2250; J2405; J3010; J3370; J3475; Q9967

== ENCOUNTER 2016-07-26 19:03 | Inpatient (IN) | payer OTHER ==
--- NOTE | ~2016-07-26 | CO ---
Unit #: [id number] #: [id number] Patient: TIA VALLECILLO [id number] [address] [address] [id number] I MR#: [id number] NAME: TIA VALLECILLO. ROOM: 474 Age: 26 Sex: F Admission Date: 07/26/2016 : 1990 Attending Physician: Nely Nielsen M.D. CONSULTATION REPORT ADDENDED/REVISED REPORT REASON FOR CONSULTATION Followup. DISCUSSION Ms. Tia Vallecillo is a 26-year-old white female, seen in room 474 bed 1 on 08/24/2016 at [facility]. The patient has a history of opioid abuse, depression, reports medication is helping her, reports decrease in anxiety, but still having trouble sleeping, mood lability. Denied any thoughts of harming self or others. Compliant with medication. The patient's vital signs stable, but still somewhat uncooperative on the unit, but compliant with medication. REVIEW OF SYSTEMS Complete review of systems unremarkable. MENTAL STATUS EXAMINATION GENERAL APPEARANCE: The patient moderately obese, dressed casually. Attention span and concentration, fair. Oriented in place and person. Mood and affect, labile. Speech, monotone. Thought process, concrete. The patient denied any thoughts of harming self or others. JOB [id number] ADDENDUM DIAGNOSES Major depressive disorder, recurrent, severe, F33.2; opioid use disorder, severe, F11.20. ASSESSMENT AND PLAN 1. Supportive psychotherapy and psychoeducation provided to the patient. 2. Educated about benefits and side effects of medication and course and prognosis of illness. 3. Advised to continue with current medication and make further adjustment of medication if needed. Please feel free to call if any questions telephone [phone]. Dictated by... Luisito Jeong M.D. Unit #: [id number] #: [id number] Patient: TIA VALLECILLO SZC/modl TD: 08/25/2016 07:57 JOB #: [id number] Delete Sotrevaa CONSULTATION REPORT Page 1 of 1 X Luisito Jeong MD CONSULTATION REPORT
--- NOTE | ~2016-07-26 | CO ---
Unit #: [id number] #: [id number] Patient: TIA VALLECILLO [id number] [facility]. [place], [place] [address] [id number] I MR#: [id number] NAME: TIA VALLECILLO ROOM: 240 Age: 25 Sex: F Admission Date: 07/26/2016 : 1990 Attending Physician: Nely Nielsen M.D. Consultation Date: 08/03/2016 CONSULTATION REPORT REASON FOR CONSULTATION Follow up discussion. HISTORY OF PRESENT ILLNESS Ms. Tia Vallecillo is a 25-year-old white female, seen in room 240, bed 1, on 08/03/2016 at [facility]. The patient was pleasant and cooperative, sleeping. The patient received Ativan according to the nursing staff. The patient has been using Ativan for agitation, which seems to be helping her. The patient still waiting to be placed in for IV treatment, which she needs for infective endocarditis. The patient is currently prescribed Ativan p.r.n., Desyrel 100 mg at bedtime. The patient is on Seroquel 50 mg three times a day. No side effects from medication. The patient denied any thoughts of harming self or others. Denied any psychotic symptom, but still having periods of agitation, anxiety. Vital signs; temperature 98.0, pulse 106, respiratory rate 16, blood pressure 103/49, oxygen saturation 99%. REVIEW OF SYSTEMS Complete review of systems unremarkable. MENTAL STATUS EXAMINATION Vital signs; please see above. General appearance; the patient dressed in hospital attire, lying comfortably in bed. Attention span and concentration, fair. Speech, regular rate and coherent. Oriented in time, place, and person. Mood and affect, sad and dysphoric. Thought process, coherent. Thought content, the patient denied any thoughts of harming self or others or any psychotic symptom. Recent and remote memory, fair. Language, intact. Fund of knowledge, fair. Insight and judgment, fair to slightly impaired. DIAGNOSES Psychiatric: Opioid use disorder, severe, F11.20. Major depressive disorder; recurrent, severe, F33.2. ASSESSMENT AND PLAN 1. Supportive psychotherapy, psychoeducation provided to the patient. 2. Educated about benefits and side effects of medication and course and prognosis of illness. 3. Advised to continue with current medication and advised to use p.r.n. Ativan, only if it is absolutely necessary. We will consider alternative medication such as Vistaril. Please feel free to call if any questions telephone #[phone]. Unit #: [id number] #: [id number] Patient: TIA VALLECILLO Dictated by... Parth Escalona/lorenzo TD: 08/04/2016 13:48 JOB #: [id number] CONSULTATION REPORT Page 1 of 1 X Luisito Jeong MD X CONSULTATION REPORT
--- NOTE | ~2016-07-26 | CO ---
Unit #: [id number] #: [id number] Patient: TIA VALLECILLO [id number] [facility]. [place], [place] [address] [id number] I MR#: [id number] NAME: TIA VALLECILLO ROOM: 240 Age: 25 Sex: F Admission Date: 07/26/2016 : 1990 Attending Physician: Nely Nielsen M.D. Consultation Date: 08/13/2016 CONSULTATION REPORT REASON FOR CONSULTATION Followup. DISCUSSION Ms. Tia Vallecillo is a 25-year-old white female, seen in room 240, bed 1 on 08/13/2016. The patient was pleasant and cooperative. Mood was irritable reported. The patient was seen at [facility]. The patient has a history of intravenous drug abuse. Drug of choice is opioids. The patient also diagnosed with infective endocarditis, currently receiving treatment for that, continues to refuse to go to a rehab. The patient needs rehab as well as continued antibiotic therapy. The patient reported in pain. Mood; sad, dysphoric, irritable, but denied any thoughts of harming self or others or any psychotic symptom. The patient continues to refuse what her vital signs, but later recorded as 97.7, pulse 102, respirations 18, blood pressure 92/53, oxygen saturation 100%. MENTAL STATUS EXAMINATION General appearance; the patient dressed casually, moderately obese, somewhat uncomfortable in bed. Speech, slow in volume and rate. Oriented in time, place, and person. Mood and affect, labile. Thought process, circumstantial. Thought content, guarded, but denied any thoughts of harming self or others. Recent and remote memory, poor. Language, fair. Fund of knowledge, fair. Insight and judgment, fair to slightly impaired. DIAGNOSES Psychiatric: Opioid use disorder, severe, F11.20; major depressive disorder, recurrent, severe, F33.2. ASSESSMENT AND PLAN 1. Supportive psychotherapy and psychoeducation provided to the patient. 2. Educated about benefits and side effects of medication and course and prognosis of illness and advised the patient to go to [facility] and continue with IV therapy on the outpatient basis once the patient is medically stable. Please feel free to call if any question, telephone #[phone]. Dictated by... Parth Escalona/lorenzo TD: 08/14/2016 03:39 Unit #: [id number] #: [id number] Patient: TIA VALLECILLO JOB #: [id number] CONSULTATION REPORT Page 1 of 1 X Luisito Jeong MD X CONSULTATION REPORT
--- NOTE | ~2016-07-26 | CO ---
Unit #: [id number] #: [id number] Patient: TIA VALLECILLO [id number] [facility] [address] [facility]. [place], [place] [address] [id number] I MR#: [id number] NAME: TIA VALLECILLO ROOM: 240 Age: 25 Sex: F Admission Date: 07/26/2016 : 1990 Attending Physician: Nely Nielsen M.D. Primary Care Physician: No Primary Care Physician Consultation Date: 08/06/2016 CONSULTATION REPORT REASON FOR CONSULTATION Followup. DISCUSSION Ms. Tia Vallecillo is a 25-year-old white female seen in room 240, bed 1 on 08/06/16 at [facility]. Patient's mood is sad, dysphoric, flat affect, somewhat irritable. Patient was eating breakfast, dressed casually in hospital attire. Denied any thoughts of harming self or others or any psychotic symptoms. break out worker is currently working on placement. Suggests Jakub Mckeon, [facility] facilities but they have denied due to drug abuse. Patient has a PICC line. Vital signs - Patient was noncompliant with that, but afebrile. REVIEW OF SYSTEMS A complete review of systems is unremarkable except as mentioned above. MENTAL STATUS EXAMINATION General appearance - Patient dressed in hospital attire. Attention span, concentration - Fair to poor. Speech - Low in volume. Oriented to place and person. Mood and affect - Labile. Thought process - Circumstantial. Thought content - Patient denied any thoughts of harming self or others or any psychotic symptoms but mood irritable. Recent and remote memory - Poor. Language - Intact. Fund of knowledge - Fair. Insight and judgment - Fair to slightly impaired. DIAGNOSIS PSYCHIATRIC: Opiate use disorder, severe, F11.20; major depressive disorder, recurrent, severe, F33.2. ASSESSMENT AND PLAN 1. Supportive psychotherapy and psychoeducation provided to the patient. 2. Educated about benefits and side effects of medication and course and prognosis of illness. 3. Advised to continue with current medications. If needed, consider further adjustment in medication, such as considering SSRI. Please feel free to call with any questions, telephone number . Dictated by... Luisito Jeong M.D. Unit #: [id number] #: [id number] Patient: ELIJAH VALLECILLOSTANTON AMBRIZ/jeanine TD: 08/07/2016 07:38 JOB #: [id number] CONSULTATION REPORT Page 1 of 1 X Luisito Jeong MD CONSULTATION REPORT
--- NOTE | ~2016-07-26 | CO ---
Unit #: [id number] #: [id number] Patient: TIA VALLECILLO [id number] [facility] [address] [facility]. [place], [place] [address] [id number] I MR#: [id number] NAME: TIA VALLECILLO ROOM: 240 Age: 25 Sex: F Admission Date: 07/26/2016 : 1990 Attending Physician: Nely Nielsen M.D. Consultation Date: 08/09/2016 CONSULTATION REPORT DISCUSSION Tia Vallecillo is a 25-year-old female, seen in room 240, bed 1 on 08/09/2016 at [facility]. The patient dressed casually in hospital attire, sitting comfortably in bed, pleasant and cooperative, made good eye contact. The patient reports that she was started on Neurontin for pain, still reporting a lot of pain and anxiety. The patient also reported trouble sleeping, currently on Seroquel, trazodone, and Neurontin started this morning. The patient reported severe anxiety. The patient refused, still uncooperative with treatment this morning. Vital signs; temperature 98.4, pulse 104, respirations 16, blood pressure 124/78, oxygen saturation 99%. REVIEW OF SYSTEMS A complete review of systems is unremarkable. MENTAL STATUS EXAMINATION General appearance; the patient dressed in hospital attire, sitting comfortably in bed. Attention span and concentration, fair. Speech; regular rate and coherent. Oriented in time, place, and person. Mood and affect; labile and anxious. Thought process, coherent. Thought content; the patient denied any thoughts of harming self or others or any psychotic symptom. Recent and remote memory, fair. Language, intact. Fund of knowledge, fair. Insight and judgment, fair to slightly impaired. DIAGNOSES Psychiatric: Opioid use disorder, severe, F11.20; anxiety disorder, not otherwise specified, F40.01; major depressive disorder, recurrent, F33.2, moderate to severe. ASSESSMENT AND PLAN 1. Supportive psychotherapy and psychoeducation provided to the patient. 2. Educated about benefits and side effects of medication and course and prognosis of illness. 3. Advised Vistaril 25 mg t.i.d. Continue with the other medication as same. If needed, consider further adjustment of medication. Please feel free to call if any questions, telephone #[phone]. Dictated by... Parth Escalona/lorenzo TD: 08/10/2016 15:43 Unit #: [id number] #: [id number] Patient: TIA VALLECILLO JOB #: [id number] CONSULTATION REPORT Page 1 of 1 X Luisito Jeong MD X CONSULTATION REPORT
--- NOTE | ~2016-07-26 | CO ---
Unit #: [id number] #: [id number] Patient: TIA VALLECILLO [id number] [address] [address] [id number] I MR#: [id number] NAME: TIA VALLECILLO. ROOM: 240 Age: 25 Sex: F Admission Date: 07/26/2016 : 1990 Attending Physician: Nely Nielsen M.D. Primary Care Physician: Primary Care Physician No Consultation Date: 08/18/2016 CONSULTATION REPORT REASON FOR CONSULTATION Followup. DISCUSSION Ms. Tia Vallecillo is a 25-year-old female, seen in room 240, bed 1 on 08/18/2016. The patient continues to report having problem with the anxiety, sleep, mood lability. The patient still very uncooperative with the nurses. Mood was labile. Compliant with medication. The patient denied any thoughts of harming self or others. The patient's vital signs; temperature 98.9, pulse 92, respiratory rate 16, blood pressure 124/84, and oxygen saturation 100%. REVIEW OF SYSTEMS Complete review of systems unremarkable. MENTAL STATUS EXAMINATION General appearance; the patient dressed casually in hospital attire. Attention span and concentration, fair. Speech, regular rate. Oriented in time, place, and person. Mood and affect, sad and depressed. Thought process, coherent. Thought content, the patient denied any thoughts of harming self or others or any psychotic symptom. Recent and remote memory, fair. Language, intact. Fund of knowledge, fair. Insight and judgment, fair to slightly impaired. DIAGNOSES Psychiatric: 1. Opioid use disorder, severe, F11.20. 2. Major depressive disorder, recurrent, severe, F33.2. 3. Anxiety disorder, not otherwise specified, F40.01. ASSESSMENT/PLAN 1. Supportive psychotherapy and psychoeducation provided to the patient. 2. Educated about benefits and side effects of medication and course and prognosis of illness. 3. Advised to continue with current medication with a plan to increase Vistaril to 50 mg t.i.d. and add Lexapro 10 mg daily for the above-mentioned symptom. We will continue to follow. Please feel free to call if any questions, telephone #[phone]. Dictated by... Parth Escalona/lorenzo Unit #: [id number] #: [id number] Patient: REMA VALLECILLOLIN Edita TD: 08/18/2016 23:17 JOB #: [id number] CONSULTATION REPORT Page 1 of 1 X Luisito Jeong MD CONSULTATION REPORT
--- NOTE | ~2016-07-26 | CO ---
Unit #: [id number] #: [id number] Patient: TIA VALLECILLO [id number] [address] [place], [place] [address] [id number] I MR#: [id number] NAME: TIA VALLECILLO ROOM: 240 Age: 25 Sex: F Admission Date: 07/26/2016 : 1990 Attending Physician: Nely Nielsen M.D. Consultation Date: 08/11/2016 CONSULTATION REPORT DISCUSSION Ms. Tia Vallecillo is a 25-year-old female, seen in room 240, bed 1 on 08/11/2016. The patient was seen as a followup. The patient reported still having lot of pain, tolerating medication fairly well, still having problem with noncompliance issues but compliant with medications. The patient's mood is sad, dysphoric, irritable. Denied any thoughts of harming self or others or any psychotic symptom, but reported having trouble sleeping and anxiety. REVIEW OF SYSTEMS Complete review of systems unremarkable. MENTAL STATUS EXAMINATION General appearance, the patient dressed casually in hospital attire, lying comfortably in bed, somewhat sleepy, refusing to make eye contact, answered question in short sentences. Attention span and concentration, fair. Speech, slow in volume and rate. Oriented in time, place, and person. Mood and affect, sad and depressed. Thought process, coherent. Thought content, the patient denied any thoughts of harming self or others or any psychotic symptom. Recent and remote memory, fair. Language, intact. Fund of knowledge, fair. Insight and judgment, fair to slightly impaired. DIAGNOSES Psychiatric: Opioid use disorder, severe, F11.20; major depressive disorder, recurrent, severe, F33.2. ASSESSMENT/PLAN 1. Supportive psychotherapy and psychoeducation provided to the patient. 2. Educated about benefits and side effects of medication and course and prognosis of illness. If needed, consider further adjustment of medication. Please feel free to call if any questions, telephone #[phone]. Dictated by... Luisito Jeong M.D. PB/lorenzo TD: 08/11/2016 23:28 JOB #: [id number] Unit #: [id number] #: [id number] Patient: TIA VALLECILLO CONSULTATION REPORT Page 1 of 1 X Luisito Jeong MD CONSULTATION REPORT
--- NOTE | ~2016-07-26 | XA166 ---
[facility] A Service of [facility] RADIOLOGY TEXT RESULTS PATIENT: TIA VALLECILLO LOCATION: C2A 240 : [birth year] UNIT #: [id number] AGE: [address]: Nely Nielsen MD SEX: F ORDER DR: [id number] [facility] [address] [facility]. [place], [place] [address] [id number] I MR#: [id number] Acc #: [id number] NAME: TIA VALLECILLO : 1990 SEX: F STUDY DATE/TIME: 07/31/2016 13:58 UNIT: C2A ROOM: 240 STUDY DESCRIPTION: XA PICC Line Placement WO Port Attending Physician: Nely Nielsen M.D. Ordering Physician: Nely Nielsen M.D. Primary Care Physician: No Primary Care Physician MEDICAL IMAGING REPORT This report is preliminary unless electronic signature is present EXAM XA PICC line placement without port. INDICATION IV access. PRE-PROCEDURE The procedure was explained to the patient and/or patient title insurance sales representative including risks, benefits, potential complications and potential for alternative forms of treatment. Informed consent was obtained, and prior to initiating the procedure a formal timeout procedure was performed. PROCEDURE Using full standard sterile barrier technique, including caps, gowns, gloves, masks, as well as sterile skin preparation and standard sterile draping, the left arm (brachial vein) was prepped and draped in the usual fashion, and real-time sterile ultrasound guidance was used to localize an arm vein and to confirm vessel patency. A hard copy ultrasound image was recorded. Noted was thrombosis of the brachial vein. A patent vein was demonstrated adjacent to the thrombosed brachial vein either representing a collateral or a duplicated brachial vein. This patent vessel was the one used for access. After local anesthesia with 1% Xylocaine, the vein was punctured using real-time sterile ultrasound guidance, and an 0.018 guidewire was advanced into the superior vena cava, using fluoroscopic guidance. A 5-Sammarinese double-lumen (40 cm) PICC was then measured and deployed with the tip positioned in the superior vena cava. The position of the line was documented with a radiographic image. The line was secured in place with an adhesive dressing and an antibiotic patch was applied. Total fluoro time was 0.1 minutes. Reference air kerma 2 mGy. [facility] A Service of [facility] RADIOLOGY TEXT RESULTS PATIENT: TIA VALLECILLO LOCATION: [facility] : [birth year] UNIT #: [id number] AGE: [address]: Nely Nielsen MD SEX: F ORDER DR: ANTONIO Successful placement of a 5-Sammarinese double-lumen (40 cm) PowerPICC via the left arm (brachial vein) under ultrasound and fluoroscopic guidance. The tip of the PICC is in good position in the superior vena cava. A single fluoroscopic spot image was obtained. Dictated by... Kirill Sterling M.D. THIS IS AN ELECTRONICALLY VERIFIED REPORT Kirill Sterling M.D. at 08/01/2016 9:49 AM JUAN/kate TD: 07/31/2016 21:22 JOB #: [id number] MEDICAL IMAGING REPORT Page 1 of 1 COPY
--- NOTE | ~2016-07-26 | CO ---
Unit #: [id number] #: [id number] Patient: TIA VALLECILLO [id number] [facility] [address] [facility]. [place], [place] [address] [id number] I MR#: [id number] NAME: TIA VALLECILLO. ROOM: 474 Age: 26 Sex: F Admission Date: 07/26/2016 : 1990 Attending Physician: Nely Nielsen M.D. Primary Care Physician: Primary Care Physician No Consultation Date: 08/26/2016 CONSULTATION REPORT DISCUSSION Ms. Kate Vallecillo is a 26-year-old female, seen on 08/26/2016 in room 474, bed 1 at [facility]. The patient reports sleeping good with decrease in anxiety and depression. The patient's vital signs; temperature 98.3, pulse 97, respiratory rate 19, blood pressure 134/73. The patient is looking forward to be discharged soon. 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 REVIEW OF SYSTEMS Complete review of systems unremarkable. MENTAL STATUS EXAMINATION General appearance, the patient dressed casually. Attention span and concentration, fair. Speech, regular rate and coherent. Oriented in time, place, and person. Mood and affect, labile. Thought process, circumstantial. Thought content, the patient denied any thoughts of harming self or others or any psychotic symptom. Recent and remote memory, fair. Language, intact. Fund of knowledge, fair to poor. Insight and judgment, fair to poor. DIAGNOSES Opioid use disorder, severe, F11.20. Major depressive disorder, recurrent, F33.2. ASSESSMENT/PLAN 1. Supportive psychotherapy and psychoeducation provided to the patient. 2. Educated about benefits and side effects of medication and course and prognosis of illness. 3. Advised to continue with the current combination of medication. If needed, consider further adjustment of medication. We will continue to follow and encourage the patient to go to a rehab facility. Dictated by... Luisito Jeong M.D. PB/lorenzo TD: 08/27/2016 05:57 JOB #: [id number] Unit #: [id number] #: [id number] Patient: TIA VALLECILLO CONSULTATION REPORT Page 1 of 1 X Luisito Jeong MD CONSULTATION REPORT
--- NOTE | ~2016-07-26 | EKG ---
PATIENT: TIA VALLECILLO UNIT #: [id number] Ventricular Rate: 59 BPM Atrial Rate: 59 BPM P-R Interval: 186 ms QRS Duration: 84 ms Q-T Interval: 434 ms QTC Calculation(Bezet): 429 ms P Avon: 6 degrees Calculated R Avon: 33 degrees Calculated T Avon: 36 degrees Diagnosis Line: Sinus bradycardia with marked sinus arrhythmia Diagnosis Line: Otherwise normal ECG Diagnosis Line: No previous ECGs available Diagnosis Line: Confirmed by BEHZAD BROWNING MD ([id number]) on Diagnosis Line: 07/27/2016 8:10:36 AM INTERPRETING MD: NALLELY BROWN
--- NOTE | ~2016-07-26 | CO ---
Unit #: [id number] #: [id number] Patient: TIA VALLECILLO [id number] [facility] [address] [facility]. [place], [place] [address] [id number] I MR#: [id number] NAME: TIA VALLECILLO ROOM: 240 Age: 25 Sex: F Admission Date: 07/26/2016 : 1990 Attending Physician: Nely Nielsen M.D. Primary Care Physician: No Primary Care Physician Consultation Date: 08/04/2016 CONSULTATION REPORT DISCUSSION Ms. Tia Vallecillo is a 25-year-old female seen on 08/04/16 in room 240, bed 1 at [facility]. Patient was pleasant and cooperative, but sad, depressed, withdrawn, isolative, and flat. Patient still requiring p.r.n. Ativan. Vital signs stable. Patient still having some oppositional behavior and defiant behavior on the unit. Patient denied any suicidal or homicidal ideation. REVIEW OF SYSTEMS Complete review of systems is unremarkable. MENTAL STATUS EXAMINATION GENERAL APPEARANCE: Patient dressed casually in hospital attire. ATTENTION SPAN AND CONCENTRATION: Poor. SPEECH: Slow. ORIENTATION: Oriented in time, place, and person. MOOD AND AFFECT: Sad, depressed. THOUGHT PROCESS: Coherent. THOUGHT CONTENT: Patient denied any thoughts of harming self or others or any hallucinations. RECENT AND REMOTE MEMORY: Fair. LANGUAGE: Intact. FUND OF KNOWLEDGE: Fair to poor. INSIGHT AND JUDGEMENT: Fair to poor. DIAGNOSES PSYCHIATRIC: 1. Opiate use disorder, severe, F11.20. 2. Major depressive disorder, recurrent, severe, F33.2. 3. Anxiety disorder, NOS, F40.01. ASSESSMENT/PLAN 1. Supportive psychotherapy and psychoeducation provided to patient. 2. Educated about benefits and side effects of medication and course and prognosis of illness. 3. Advised to continue with current medication and consider SSRI if needed. Please feel free to call if any questions. Telephone number . Dictated by... Unit #: [id number] #: [id number] Patient: TIA VALLECILLO Parth Escalona TD: 08/05/2016 08:09 JOB #: [id number] CONSULTATION REPORT Page 1 of 1 X Luisito Jeong MD CONSULTATION REPORT
--- NOTE | ~2016-07-26 | DS ---
Unit #: [id number] #: [id number] Patient: TIA VALLECILLO [id number] [address] [place], [place] [address] [id number] I MR#: [id number] NAME: TIA VALLECILLO ROOM: 474 Age: 26 Sex: F Admission Date: 07/26/2016 : 1990 Discharge Date: 08/27/2016 Attending Physician: Nely Nielsen M.D. Primary Care Physician: No Primary Care Physician DISCHARGE SUMMARY REASON FOR ADMISSION Patient returned with abdominal pain, nausea, vomiting, unable to tolerate p.o. HISTORY OF PRESENT ILLNESS/HOSPITAL COURSE Please see original H and P for complete details of initial part of hospital course. Patient essentially is a known IV drug abuser with a prior history of hepatitis C with very little insight into her disease process, who originally left AMA several days prior to this particular admission, was re-admitted for the same. She was noted on a previous admission to have positive MSSA bacteremia with a resultant tricuspid valve endocarditis noted on 2D echocardiogram. Repeat blood cultures did show VRE. Infectious disease services were consulted. Through her hospital course, patient received appropriate treatment for both VRE as well as MSSA bacteremia with approximately five to five and a half weeks of IV antibiotics. Unfortunately, we were not able to discharge the patient to any particular facility secondary to her prior history of IV drug abuse. She was at high risk for complications secondary to her longstanding history of noncompliance and certainly we could not discharge her home with a PICC line. At this point in time, infectious disease services have now stated the patient has completed her antibiotic course. Cardiology services have stated the patient should followup on September 21, 2016 for a repeat 2D echocardiogram. After review of that 2D echocardiogram as well as repeat blood cultures at that time are clear and patient's urine tox screen is negative, consideration may be given to outpatient cardiovascular surgery evaluation and/or further management will be at the discretion of cardiology. Noted, 2D echocardiogram does show 1.1 x 2.1 cm vegetation which is attached to the tricuspid valve and this study was performed on July 24, 2016. At this time, patient is clinically stable for discharge. Also noted, we did have Dr. Jeong of psychiatry services consulted secondary to underlying history of anxiety disorder. FINAL DISCHARGE DIAGNOSES 1. Tricuspid valve endocarditis. Unit #: [id number] #: [id number] Patient: TIA VALLECILLO 2. Methicillin-sensitive Staphylococcus aureus bacteremia, treated. 3. Vancomycin-resistant enterococcus bacteremia, treated. 4. IV drug abuse, ongoing. 5. Prior history of noncompliance. 6. Morbid obesity. DISCHARGE CONDITION Stable. DISCHARGE DISPOSITION Home with followup as outlined above. Dictated by... Parth Gray/dorys TD: 08/27/2016 12:31 JOB #: [id number] DISCHARGE SUMMARY Page 1 of 1 X Nely Nielsen MD X DISCHARGE SUMMARY
--- NOTE | ~2016-07-26 | CO ---
Unit #: [id number] #: [id number] Patient: TIA VALLECILLO [id number] [facility] [address] [facility]. [place], [place] [address] [id number] I MR#: [id number] NAME: TIA VALLECILLO. ROOM: 474 Age: 25 Sex: F Admission Date: 07/26/2016 : 1990 Attending Physician: Nely Nielsen M.D. Primary Care Physician: Primary Care Physician No Consultation Date: 08/20/2016 CONSULTATION REPORT REASON FOR CONSULTATION Followup. DISCUSSION Ms. Tia Vallecillo is a 25-year-old white female, seen in room 240, bed 1 on 08/20/2016 at [facility]. The patient reports medication is helping her with anxiety, and sleep was still flat affect, sad, dysphoric, and noncompliant with some treatment. Refusing to take her vital signs. The patient denied any thoughts of harming self or others or any psychotic symptom. REVIEW OF SYSTEMS Complete review of systems is unremarkable. MENTAL STATUS EXAMINATION The patient dressed casually in hospital attire, lying comfortably in bed. Attention span and concentration, fair. Oriented in time, place, and person. Mood and affect, sad and dysphoric. Speech, monotone. Thought process, concrete. The patient denied any thoughts of harming self or others. Recent and remote memory, fair. Language, intact. Fund of knowledge, fair. Insight and judgment, fair to slightly impaired. DIAGNOSES Psychiatric: Opioid use disorder, severe, F11.20; major depressive disorder, recurrent, severe, F33.2; anxiety disorder, not otherwise specified, F40.01. ASSESSMENT/PLAN 1. Supportive psychotherapy and psychoeducation provided to the patient. 2. Educated about benefits and side effects of medication and course and prognosis of illness. 3. Advised to continue with current medication. If needed, consider further adjustment of medication. Please feel free to call if any questions, telephone #[phone]. Dictated by... Luisito Jeong M.D. PB/lorenzo TD: 08/21/2016 22:44 JOB #: [id number] Unit #: [id number] #: [id number] Patient: TIA VALLECILLO CONSULTATION REPORT Page 1 of 1 X Luisito Jeong MD CONSULTATION REPORT
--- NOTE | ~2016-07-26 | A ---
[facility] Nutrition Therapy DATE: 08/05/16 Patient: TIA VALLECILLO Physician: CONRADR Address: [address] Room/Bed: [address] [place] [address], Zip: [place] [address] Admit Date: 07/26/16 Date of : [birth year] Height: 5 9 Weight: 189 86.18 NUTRITIONAL ASSESSMENT: REASON: LOS ASSESSMENT PT IS 25 Y.O. FEMALE ADMITTED FOR ENDOCARDITIS PMH: DEPRESSION, POLYSUBSTANCE ABUSE, HEPATITIS C, MRSA, IV DRUG USE Anthropometrics: 5'9", WT: 190# (86 KG), BMI: 28.1 Labs: CA+:8.3, ALB: 2.7, AMYLASE: 54 Meds: NACL, ZOFRAN I/O & Bowel function: Skin Integrity: TATOOS NOTED Assessment: CHART REVIEWED AND EVENTS NOTED. PT SEEN FOR LENGTH OF STAY ASSESSMENT (10 DAYS). PT SLEEPY/LETHARGIC/WITHDRAWN AT TIME OF VISIT REPORTING GOOD PO INTAKE AND APPETITE, NO C/O N/V/D. PT REPORTS CONSUMING 100% OF MEALS. PT DENIES ANY RECENT WEIGHT LOSS. PT NOT APPROPRIATE FOR DIET EDUCATION AT THIS VISIT. RD TO REMAIN AVAILABLE. PER RN AND CHART, REBECA ROBLERO SCHEDULED. POOR PROGNOSIS NOTED. Dx: ADEQUATE NUTRIENT INTAKE R/T GOOD APPETITE AEB PT REPORT ABOVE, PT CONSUMING 100% OF MEALS. Intervention: 1. REGULAR DIET Monitoring, Evaluation and Goals: 1. ORAL INTAKE; CONSUME >50% OF MEALS 2. GI; PROMOTE REGULAR GI FUNCTIIN MONITOR: -PO INTAKE/APPETITE -WEIGHTS Recommendations: 1. NONE AT THIS TIME NO NUTRITION RISK [facility] Nutrition Therapy DATE: 08/05/16 Patient: TIA VALLECILLO Physician: ZAC Address: [address] Room/Bed: [address] [place] [address], Zip: [place] [address] Admit Date: 07/26/16 Date of : [birth year] Height: 5 9 Weight: 189 86.18 Respectfully, KEIRY ZARATE MS, RD, LD [facility] cc: client file
--- NOTE | ~2016-07-26 | CO ---
Unit #: [id number] #: [id number] Patient: TIA VALLECILLO [id number] [address] [address] [id number] I MR#: [id number] NAME: TIA VALLECILLO. ROOM: 474 Age: 25 Sex: F Admission Date: 07/26/2016 : 1990 Attending Physician: Nely Nielsen M.D. Primary Care Physician: Primary Care Physician No Consultation Date: 08/22/2016 CONSULTATION REPORT DISCUSSION Ms. Tia Vallecillo is a 25-year-old female, seen in room 474, bed 1 on 08/22/2016 at [facility]. The patient was compliant, cooperative, somewhat anxious, nervous. The patient reported that she is sick of being in the hospital, somewhat upset, anxious, nervous, but denied any suicidal or homicidal ideation. Denied any psychotic symptom. REVIEW OF SYSTEMS Complete review of system is unremarkable. MENTAL STATUS EXAMINATION The patient's vital signs; temperature 98.0, pulse 94, respiratory rate 18, blood pressure 126/79, and oxygen saturation 99%. General appearance; the patient dressed in street clothes, lying comfortably in bed. Made good eye contact. Attention span and concentration, fair. Speech, regular rate and coherent. Oriented to time, place, and person. Mood and affect, labile. Thought process, goal directed. The patient denied any thoughts of harming self or others or any psychotic symptom. Recent and remote memory, fair. Language, intact. Fund of knowledge, fair. Insight and judgment, fair to poor. DIAGNOSES Opioid use disorder, severe, F11.20; major depressive disorder, recurrent, severe, F33.2. ASSESSMENT/PLAN 1. Supportive psychotherapy and psychoeducation provided to the patient. 2. Educated about benefits and side effects of medication and course and prognosis of illness. 3. Advised to continue with current medication. If needed, consider further adjustment of medication. Please feel free to call if any questions, telephone #[phone]. Dictated by... Luisito Jeong M.D. PB/lorenzo TD: 08/23/2016 08:32 JOB #: [id number] Unit #: [id number] #: [id number] Patient: TIA VALLECILLO CONSULTATION REPORT Page 1 of 1 X Luisito Jeong MD CONSULTATION REPORT
--- NOTE | ~2016-07-26 | CO ---
Unit #: [id number] #: [id number] Patient: TIA VALLECILLO [id number] [facility] [address] [facility]. [place], [place] [address] [id number] I MR#: [id number] NAME: TIA VALLECILLO. ROOM: 240 Age: 25 Sex: F Admission Date: 07/26/2016 : 1990 Attending Physician: Nely Nielsen M.D. Primary Care Physician: Primary Care Physician No Consultation Date: 08/15/2016 CONSULTATION REPORT DISCUSSION Ms. Tia Vallecillo is a 25-year-old female, seen on 08/15/2016. The patient interviewed, chart reviewed, and obtained information from nursing staff. The patient seen in room 240, bed 1 on 08/15/2016 at [facility]. The patient was sitting comfortably, dressed casually. The patient denied any complaint. Reports mood is getting better. Denied any anxiety or depression. No side effects from medication. Denied any suicidal or homicidal ideation. Cooperative with treatment. Still somewhat anxious about not knowing how long she has to stay in the hospital. Complete review of system unremarkable. Vital signs, the patient afebrile, but not cooperative with that. MENTAL STATUS EXAMINATION General appearance; the patient moderately obese, dressed casually. Attention span and concentration, fair. Speech, regular rate and coherent. Oriented in time, place, and person. Mood and affect, labile. Thought process, coherent. Thought content, the patient denied any thoughts of harming self or others, but anxious. Mood labile. Denied any hallucination. Recent and remote memory, poor. Language, intact. Fund of knowledge, fair. Insight and judgment, fair to slightly impaired. DIAGNOSES Psychiatric: Opioid use disorder, severe, F11.20; major depressive disorder, recurrent, severe, F33.2. ASSESSMENT AND PLAN 1. Supportive psychotherapy and psychoeducation provided to the patient. 2. Educated about benefits and side effects of medication and course and prognosis of illness. 3. Advised to continue with current combination of medication and make further adjustment of medication if needed. Please feel free to call if any questions telephone #[phone]. Dictated by... Luisito Jeong M.D. PB/lorenzo TD: 08/16/2016 23:02 JOB #: [id number] Unit #: [id number] #: [id number] Patient: TIA VALLECILLO CONSULTATION REPORT Page 1 of 1 X Luisito Jeong MD CONSULTATION REPORT
--- NOTE | ~2016-07-26 | CO ---
Unit #: [id number] #: [id number] Patient: TIA VALLECILLO [id number] [address] [place], [place] [address] [id number] I MR#: [id number] NAME: TIA VALLECILLO. ROOM: 474 Age: 25 Sex: F Admission Date: 07/26/2016 : 1990 Attending Physician: Nely Nielsen M.D. Primary Care Physician: Primary Care Physician No Consultation Date: 08/21/2016 CONSULTATION REPORT REASON FOR CONSULTATION Followup. DISCUSSION Ms. Tia Vallecillo is a 25-year-old female, seen in room 474, bed 1 on 08/21/2016 at [facility]. The patient was moved to a different room, different floor. The patient is compliant and cooperative. Mood is sad, dysphoric, anxious. Flat affect. Compliant with the treatment. The patient reports that she may be going to [employer]. The patient has been cooperative here. No agitation. Reports medication is helping her. Denied any suicidal or homicidal ideation. The patient's vital signs; temperature 98.0, pulse 89, respirations 16, blood pressure 127/73, oxygen saturation 98%. REVIEW OF SYSTEMS Complete review of systems unremarkable. MENTAL STATUS EXAMINATION General appearance, the patient dressed casually. Attention span and concentration, fair. Speech, regular rate and coherent. Oriented in place and person. Mood and affect, sad and dysphoric. Thought process, coherent. Thought content, the patient denied any thoughts of harming self or others or any psychotic symptom. Recent and remote memory, fair. Language, intact. Fund of knowledge, fair. Insight and judgment, fair to slightly impaired. DIAGNOSES Psychiatric: Opioid use disorder, severe, F11.20; major depressive disorder, recurrent, severe, F33.2; anxiety disorder, not otherwise specified, F40.01. ASSESSMENT/PLAN 1. Supportive psychotherapy and psychoeducation provided to the patient. 2. Educated about benefits and side effects of medication and course and prognosis of illness. 3. If needed, consider further adjustment of medication. Please feel free to call if any questions, telephone #[phone]. Dictated by... Luisito Jeong M.D. PB/lorenzo Unit #: [id number] #: [id number] Patient: VALLECILLOTIA Edita TD: 08/22/2016 18:53 JOB #: [id number] CONSULTATION REPORT Page 1 of 1 X Luisito Jeong MD CONSULTATION REPORT
--- NOTE | ~2016-07-26 | CO ---
Unit #: [id number] #: [id number] Patient: TIA VALLECILLO [id number] [address] [address] [id number] I MR#: [id number] NAME: TIA VALLECILLO. ROOM: 474 Age: 26 Sex: F Admission Date: 07/26/2016 : 1990 Attending Physician: Nely Nielsen M.D. Primary Care Physician: Primary Care Physician No Consultation Date: 08/27/2016 CONSULTATION REPORT REASON FOR CONSULTATION Followup. DISCUSSION Ms. Tia Vallecillo is a 26-year-old female, seen in room 474, bed 1 on 08/27/2016 at [facility]. The patient seemed to be in a good mood and reports that she will be leaving today and follow up in outpatient program. The patient reports her anxiety is better, decrease in anxiety and depression. Denied any suicidal or homicidal ideation. Compliant with medication. The patient's vital signs; temperature 98.1, pulse 76, respirations 18, blood pressure 118/77, and oxygen saturation 99%. REVIEW OF SYSTEMS Complete review of systems unremarkable. MENTAL STATUS EXAMINATION General appearance; the patient dressed casually in street clothes. Attention span and concentration, fair. Speech, regular rate and coherent. Oriented in time, place, and person. Mood and affect, labile. Thought process, coherent. Thought content, the patient denied any suicidal or homicidal ideation or any psychotic symptom. Recent and remote memory, fair. Language, intact. Fund of knowledge, fair. Insight and judgment, fair to slightly impaired. DIAGNOSES Psychiatric: Opioid use disorder, severe, F11.20; major depressive disorder, recurrent, severe, F33.2. ASSESSMENT/PLAN 1. Supportive psychotherapy and psychoeducation provided to the patient. 2. Educated about benefits and side effects of medication and course and prognosis of illness. 3. Advised the patient to [facility] telephone [phone]. Please feel free to call if any questions, telephone #[phone]. Dictated by... Luisito Jeong M.D. PB/lorenzo TD: 08/28/2016 22:50 Unit #: [id number] #: [id number] Patient: TIA VALLECILLO JOB #: [id number] CONSULTATION REPORT Page 1 of 1 X Luisito Jeong MD CONSULTATION REPORT
--- NOTE | ~2016-07-26 | CO ---
Unit #: [id number] #: [id number] Patient: TIA VALLECILLO [id number] [address] [place], [place] [address] [id number] I MR#: [id number] NAME: TIA VALLECILLO ROOM: 240 Age: 25 Sex: F Admission Date: 07/26/2016 : 1990 Attending Physician: Nely Nielsen M.D. Consultation Date: 08/10/2016 CONSULTATION REPORT REASON FOR CONSULTATION Followup. DISCUSSION Ms. Tia Vallecillo is a 25-year-old white female, seen in room 240, bed 1 on 08/10/2016. The patient was pleasant and cooperative. The patient wanted to her Neurontin to be raised, currently on 300 mg b.i.d. Reports that still in pain, anxious, nervous, sad and depressed, but feeling better since adding Vistaril. Denied any suicidal or homicidal ideation. Pleasant and cooperative during interview. Dressed in hospital attire and eating her breakfast. Vital signs; the patient refused her vitals, still somewhat uncooperative on the unit. REVIEW OF SYSTEMS Complete review of systems unremarkable. MENTAL STATUS EXAMINATION General appearance, the patient dressed in hospital attire, sitting comfortably in bed. Attention span and concentration, fair. Speech, regular rate and coherent. Oriented in time, place, and person. Mood and affect were sad, dysphoric, irritable, but able to smile. Thought process, coherent. Thought content, the patient denied any suicidal or homicidal ideation. Denied any psychotic symptom. Recent and remote memory, fair. Language, intact. Fund of knowledge, fair to slightly impaired. DIAGNOSES Psychiatric: Opioid use disorder, severe, F11.20; major depressive disorder, recurrent, severe, F33.2. ASSESSMENT/PLAN 1. Supportive psychotherapy and psychoeducation provided to the patient. 2. Educated about benefits and side effects of medication and course and prognosis of illness. 3. Advised to continue with current medication. Advised to continue with current Neurontin. If needed, consider further adjustment of medication. The patient to continue with the inpatient treatment. Please feel free to call if any questions, telephone #[phone]. Dictated by... Parth Escalona/lorenzo Unit #: [id number] #: [id number] Patient: ELIJAH VALLECILLOSTANTON Kohler TD: 08/10/2016 23:21 JOB #: [id number] CONSULTATION REPORT Page 1 of 1 X Luisito Jeong MD CONSULTATION REPORT
--- NOTE | ~2016-07-26 | CO ---
Unit #: [id number] #: [id number] Patient: TIA VALLECILLO [id number] [facility] [address] [facility]. [place], [place] [address] [id number] I MR#: [id number] NAME: TIA VALLECILLO. ROOM: 474 Age: 26 Sex: F Admission Date: 07/26/2016 : 1990 Attending Physician: Nely Nielsen M.D. Primary Care Physician: Primary Care Physician No Consultation Date: 08/24/2016 CONSULTATION REPORT JOB NOTE: INCOMPLETE DICTATION REASON FOR CONSULTATION Followup. DISCUSSION Ms. Tia Vallecillo is a 26-year-old white female, seen in room 474 bed 1 on 08/24/2016 at [facility]. The patient has a history of opioid abuse, depression, reports medication is helping her, reports decrease in anxiety, but still having trouble sleeping, mood lability. Denied any thoughts of harming self or others. Compliant with medication. The patient's vital signs stable, but still somewhat uncooperative on the unit, but compliant with medication. REVIEW OF SYSTEMS Complete review of systems unremarkable. MENTAL STATUS EXAMINATION GENERAL APPEARANCE: The patient moderately obese, dressed casually. Attention span and concentration, fair. Oriented in place and person. Mood and affect, labile. Speech, monotone. Thought process, concrete. The patient denied any thoughts of harming self or others. See job #[id number] for completion Dictated by... Parth Escalona/lorenzo TD: 08/25/2016 14:57 JOB #: [id number] CONSULTATION REPORT Page 1 of 1 X Luisito Jeong MD X CONSULTATION REPORT
--- NOTE | ~2016-07-26 | CO ---
Unit #: [id number] #: [id number] Patient: TIA VALLECILLO [id number] [address] [address] [id number] I MR#: [id number] NAME: TIA VALLECILLO. ROOM: 240 Age: 25 Sex: F Admission Date: 07/26/2016 : 1990 Attending Physician: Nely Nielsen M.D. Consultation Date: 08/19/2016 CONSULTATION REPORT REASON FOR CONSULTATION Followup. DISCUSSION Ms. Tia Vallecillo is a 25-year-old female, seen in room 240, bed 1 on 08/19/2016 at [facility]. The patient dressed casually, lying comfortably in bed. The patient reported medication is helping her. Yesterday, Lexapro was added and also Vistaril was increased. The patient denied any side effects from medication. Denied any psychotic symptom or any suicidal or homicidal ideation. The patient's vital signs, the patient was uncooperative but afebrile. REVIEW OF SYSTEMS Complete review of systems unremarkable. MENTAL STATUS EXAMINATION General appearance; the patient dressed casually. Attention span and concentration, fair. Oriented in time, place, and person. Mood and affect, labile. Speech, monotone. Oriented in time, place, and person. Mood and affect; sad, dysphoric, labile. Thought process, coherent. Thought content, the patient denied any thoughts of harming self or others. Recent and remote memory, fair. Language, intact. Fund of knowledge, fair to slightly impaired. DIAGNOSES 1. Opioid use disorder, severe, F11.20. 2. Major depressive disorder, recurrent, severe, F33.2. 3. Anxiety disorder, not otherwise specified, F40.01. ASSESSMENT/PLAN 1. Supportive psychotherapy and psychoeducation provided to the patient. 2. Educated about benefits and side effects of medication and course and prognosis of illness. 3. Advised to continue with current combination of medication. If needed, consider further adjustment of medication. Please feel free to call if any questions, telephone #[phone]. Dictated by... Luisito Jeong M.D. PB/lorenzo TD: 08/20/2016 00:08 Unit #: [id number] #: [id number] Patient: TIA VALLECILLO JOB #: [id number] CONSULTATION REPORT Page 1 of 1 X Luisito Jeong MD CONSULTATION REPORT
--- NOTE | ~2016-07-26 | CR72 ---
[facility] A Service of [facility] RADIOLOGY TEXT RESULTS PATIENT: TIA VALLECILLO LOCATION: [facility] 240-01 : 92 UNIT #: [id number] AGE: [address]: Nely Nielsen MD SEX: F ORDER DR: [id number] [place], [place] [address] [id number] I MR#: [id number] Acc #: [id number] NAME: TIA VALLECILLO : 1990 SEX: F STUDY DATE/TIME: 08/13/2016 1311 UNIT: [facility] ROOM: 240 STUDY DESCRIPTION: CR Chest Single View Portable Attending Physician: Nely Nielsen M.D. Ordering Physician: Physician Non-Staff Primary Care Physician: No Primary Care Physician MEDICAL IMAGING REPORT This report is preliminary unless electronic signature is present EXAM Chest portable 08/13/2016 1311 hours HISTORY Shortness of air with chest pain since 07/26/2016 COMPARISON Chest x-ray 07/26/2016 FINDINGS Portable upright chest demonstrates left PICC line tip with tip in mid SVC. Interval clearing of densities in the right lung. There is persistent cavitary lesion in the left perihilar region measuring 2.3 cm previously 2.5 cm. No definite new densities are seen. Density at the left base is decreased measuring 2.4 cm previously 3.3 cm. IMPRESSION 1. Left PICC line with tip in mid SVC. 2. The right lung appears clear. 3. There are residual ovoid nodular densities in the left perihilar region and left lung base appearing slightly smaller than on 07/26/2016. No new or developing densities are seen. Dictated by... Izzy Garg M.D. THIS IS AN ELECTRONICALLY VERIFIED REPORT Izzy Garg M.D. at 08/13/2016 5:42 PM Ngozi TD: 08/13/2016 16:15 JOB #: [id number] [facility] A Service of [facility] RADIOLOGY TEXT RESULTS PATIENT: TIA VALLECILLO LOCATION: [facility] [id number] [birth year] UNIT #: [id number] AGE: [address]: Nely Nielsen MD SEX: F ORDER DR: MEDICAL IMAGING REPORT Page 1 of 1 COPY
--- NOTE | ~2016-07-26 | CO ---
Unit #: [id number] #: [id number] Patient: TIA VALLECILLO [id number] [address] [place], [place] [address] [id number] MR#: [id number] NAME: TAI VALLECILLO ROOM: 240 Age: 25 Sex: F Admission Date: 07/26/2016 : 1990 Attending Physician: Nely Nielsen M.D. Primary Care Physician: Primary Care Physician No Consultation Date: 07/31/2016 CONSULTATION REPORT REASON FOR CONSULTATION Followup. DISCUSSION Ms. Tia Vallecillo is a 25-year-old white female, seen in room 240, bed 1 on 07/31/2016. The patient was diagnosed with major depressive disorder, cannabis abuse, opioid abuse disorder. The patient has a history of endocarditis, seemed very anxious and nervous. The patient has been noncompliant with the treatment on the unit, refusing to start IV. The patient denied any suicidal or homicidal ideation or any psychotic symptom, but severe anxiety. The patient was explained that if she does not continue with the treatment, then there is a high likelihood that she will from the infection in her heart. The patient agreed to take Ativan to control anxiety. REVIEW OF SYSTEMS Complete review of systems is unremarkable except as mentioned above. MENTAL STATUS EXAMINATION Vital signs; temperature 97.8, pulse 97, respirations 17, blood pressure 115/70, oxygen saturation 94%. General appearance; the patient dressed casually in hospital attire, seemed somewhat anxious and nervous. Attention span and concentration, fair. Speech; rapid in rate and pressured. Oriented in time, place, and person. Mood and affect; sad, depressed, and anxious. Thought process, coherent. Thought content; the patient denied any thoughts of harming self or others, but guarded, somewhat paranoid, anxious. Recent and remote memory, fair. Language, intact. Fund of knowledge, fair to poor. Insight and judgment, fair to poor. DIAGNOSES Psychiatric: Major depressive disorder, recurrent, [id number], F33.2; cannabis abuse, moderate, F12.20; opioid abuse disorder, mtqtywmy-[id number], F11.20; anxiety disorder, not otherwise specified, F40.01. ASSESSMENT AND PLAN 1. Supportive psychotherapy and psychoeducation provided to the patient. 2. Educated about benefits and side effects of medication and course and prognosis of illness. 3. Advised Ativan 1 mg now and Ativan 1 mg q.4 p.r.n. for severe anxiety. We will continue to follow. Please feel free to call if any questions, telephone #[phone]. Unit #: [id number] #: [id number] Patient: RUTH ANNTIA Edita Dictated by... Parth Escalona/lorenzo TD: 08/01/2016 13:58 JOB #: [id number] CONSULTATION REPORT Page 1 of 1 X Luisito Jeong MD X CONSULTATION REPORT
--- NOTE | ~2016-07-26 | HP ---
Unit #: [id number] #: [id number] Patient: TIA VALLECILLO [id number] [address] [place], [place] [address] [id number] MR#: [id number] NAME: TIA VALLECILLO. ROOM: 240 Age: 25 Sex: F Admission Date: 07/26/2016 : 1990 Attending Physician: Nely Nielsen M.D. Primary Care Physician: No Primary Care Physician HISTORY AND PHYSICAL REASON FOR ADMISSION Patient returned after leaving AMA at approximately 1500 to the emergency room with complaints of abdominal pain, feeling unwell. HISTORY OF PRESENT ILLNESS The patient is a 25-year-old female who recently left AMA earlier this afternoon. She had been diagnosed with MSSA bacteremia as well as tricuspid valve endocarditis. Infectious disease services was working on an IV antibiotic regimen to be conducted as an outpatient when patient elected to leave. She stated that she had other things to do at home. She presented back to the hospital later this evening with complaints of abdominal pain as well as feeling being unwell. She is currently being readmitted and she is well aware that she needs to stay and must be placed on appropriate medications. She is agreeable at this point in time. PAST MEDICAL HISTORY 1. Polysubstance abuse. 2. IV heroin abuse on a daily basis. 3. Benzodiazepine abuse. 4. Recent diagnosis of tricuspid valve endocarditis. 5. Recent diagnosis of MSSA bacteremia. 6. Hepatitis C. PAST SURGICAL HISTORY None. SOCIAL HISTORY Positive tobacco use, positive illicit drug use, positive benzodiazepine use. Longstanding history of opioid abuse. FAMILY HISTORY Reviewed, noncontributory and non-pertinent. ALLERGIES No known drug allergies. HOME MEDICATIONS None noted. REVIEW OF SYSTEMS Please see HPI. Twelve point otherwise negative except for those positives noted in the HPI. Unit #: [id number] #: [id number] Patient: TIA VALLECILLO PHYSICAL EXAMINATION VITAL SIGNS: Temperature 98.1, pulse 74, respiratory rate 18, blood pressure 125/76. GENERAL APPEARANCE: Obese 25-year-old female lying comfortably, in no acute distress. HEAD EXAM: Atraumatic, normocephalic. EAR EXAM: Tympanic membranes do not reveal any erythema or injection. NECK EXAM: Supple. CVS: S1, S2 without murmur. RESPIRATORY: Clear. GI/ABDOMEN: Distention noted. Subjective tenderness is noted. No rebound, no guarding. EXTREMITIES: Lower extremity exam - no evidence of any lower extremity edema. NEUROLOGICAL EXAM: The patient is A and O x3. No evidence of any focal nerve deficits. PSYCHIATRIC EXAM: The patient demonstrates normal mood and affect. ER COURSE The patient received normal saline as well as Zofran 8 mg oral x1. Initial laboratory studies are currently pending. INITIAL ADMISSION DIAGNOSES 1. IV drug abuse. 2. Abdominal pain. 3. Methicillin sensitive Staph aureus bacteremia. 4. Tricuspid valve endocarditis. 5. Longstanding history of noncompliance. 6. Poor insight into disease process. 7. Hepatitis C. PLAN Admission, Med/Surg floor. Resume IV antibiotics. ID consult. Blood cultures will be obtained. Patient is aware that we must start over again in regards to her overall regimen. Symptom support with routine medications including Zofran. Tylenol. No narcotics will be administered and/or prescribed. Patient is well aware. Urine tox screen to be repeated. Overall, the prognosis of this patient is poor. Her life expectancy is likely less than one year secondary to her poor insight into her disease process. This has been reviewed with her once again at this particular juncture. Dictated by Parth Gray/miguel TD: 07/27/2016 06:04 JOB #: [id number] Unit #: [id number] #: [id number] Patient: RUTH ANNTIA S HISTORY AND PHYSICAL Page 1 of 1 X Nely Nielsen MD HISTORY AND PHYSICAL
--- NOTE | ~2016-07-26 | CO ---
Unit #: [id number] #: [id number] Patient: TIA VALLECILLO [id number] [facility] [address]. [place], [place] [address] [id number] I MR#: [id number] NAME: TIA VALLECILLO. ROOM: 240 Age: 25 Sex: F Admission Date: 07/26/2016 : 1990 Attending Physician: Nely Nielsen M.D. Consultation Date: 07/30/2016 CONSULTATION REPORT REASON FOR CONSULTATION Substance abuse, depression. HISTORY OF PRESENT ILLNESS Ms. Kate Vallecillo is a 25-year-old white female, seen in room 240, bed 1 on 07/30/2016 at [facility]. The patient has a history of previous treatment at [facility]. The patient was admitted recently at [facility] and left AMA. The patient reported that she started feeling bad, having problems, subsequently returned. The patient has a history of substance abuse, heroin, benzodiazepine, marijuana, history of hepatitis C. The patient was tested positive for hepatitis C. The patient diagnosed with bacteremia, tricuspid valve endocarditis. The patient reported feeling sad, depressed, anxious, trouble falling asleep, staying asleep. Denied any current suicidal or homicidal ideation. Denied any psychotic symptom. Vital signs, the patient refused. PAST PSYCHIATRIC HISTORY Remarkable for history of previous treatment at [facility] recently for detox from opioids. No history of any suicide attempt. MEDICAL HISTORY History of hepatitis C, history of IV heroin abuse. MEDICATION HISTORY None. ALLERGIES No known drug allergies. FAMILY HISTORY AND SOCIAL HISTORY The patient has a poor support system. No history of abuse. History of substance abuse. REVIEW OF SYSTEMS Complete review of systems is unremarkable except as mentioned above. MENTAL STATUS EXAMINATION Vital signs, please see above. General appearance; the patient dressed casually. Attention span and concentration, fair. Speech, slow. Oriented in place and person. Mood and affect, sad and depressed. Thought process, coherent. Thought content; denied any thoughts of harming self or others, but sad, depressed, withdrawn. Denied any hallucination, but guarded. Recent and remote memory, fair. Language, Unit #: [id number] #: [id number] Patient: TIA VALLECILLO intact. Fund of knowledge, fair. Insight and judgment, fair to slightly impaired. DIAGNOSES Psychiatric: Major depressive disorder, recurrent, moderate, F33.2; cannabis abuse, moderate, F12.20; opioid use disorder, moderate, F11.20. Secondary diagnosis: Deferred. Medical diagnosis: Please refer to H and P. Stressors: Psychosocial stressor. ASSESSMENT/PLAN 1. Supportive psychotherapy and psychoeducation provided to the patient. 2. Educated about benefits and side effects of medication and course and prognosis of illness. 3. Advised to continue with current medication with a plan to increase trazodone to 100 mg at bedtime. Continue with Seroquel 50 mg t.i.d. We will continue to follow. If needed, consider further adjustment of medication. Please feel free to call if any question telephone #[phone]. Dictated by... Parth Escalona/lorenzo TD: 07/31/2016 02:12 JOB #: [id number] CONSULTATION REPORT Page 1 of 1 X Luisito Jeong MD X CONSULTATION REPORT
--- NOTE | ~2016-07-26 | CR72 ---
[facility] A Service of [facility] RADIOLOGY TEXT RESULTS PATIENT: TIA VALLECILLO LOCATION: [facility] : 92 UNIT #: [id number] AGE: [address]: Monika Dee MD SEX: F ORDER DR: [id number] [facility] [address] [place], [place] [address] [id number] MR#: [id number] Acc #: [id number] NAME: TIA VALLECILLO. : 1990 SEX: F STUDY DATE/TIME: 07/26/2016 21:36 UNIT: [facility] ROOM: STUDY DESCRIPTION: CR Chest Single View Portable Attending Physician: Monika Dee M.D. Ordering Physician: Monika Dee M.D. Primary Care Physician: Primary Care Physician No MEDICAL IMAGING REPORT This report is preliminary unless electronic signature is present EXAM Frontal chest, 07/26/2016 INDICATIONS 25-year-old female with shortness of air, chest pain and abdominal pain today. TECHNIQUE Frontal chest was performed. Correlation is made with CT 07/22/2016. FINDINGS Cardiac silhouette is within normal limits. The vascularity is unremarkable. There are subtle cavitating lesions in the right lung, including a 15 mm cavitating nodule in the mid lung on the right and an 11 mm cavitating lesion in the lower lung zone on the right. On the left, there is a mid lung zone cavitating lesion measuring about 2.5 cm. These findings are better demonstrated on the patient's recent chest CT of 07/22/2016. Please see that report for further details. There is airspace consolidation in the left lung base, probably representing a combination of pneumonia and a cavitary lesion better demonstrated on the prior CT as well. There is pleural thickening and blunting of the left CP angle, similar to the prior CT. No pneumothorax. IMPRESSION 1. Cavitary lung lesions bilaterally. Findings are similar to the prior chest CT of 07/22/2016. Please see that report for further details. Additional cavitary lesion and airspace disease in the left lung base. Left-sided effusion/pleural thickening. 2. No pneumothorax. 3. Constellation of features is suspicious for septic emboli. Correlate with any history of IV drug abuse or endocarditis in this regard. [facility] A Service of [facility] RADIOLOGY TEXT RESULTS PATIENT: TIA VALLECILLO LOCATION: [facility] : 92 UNIT #: [id number] AGE: [address]: Monika Dee MD SEX: F ORDER DR: STAT * RESULT Dictated by... Jm Monet M.D. THIS IS AN ELECTRONICALLY VERIFIED REPORT Jm Monet M.D. at 07/26/2016 10:52 PM Nori TD: 07/26/2016 22:15 JOB #: [id number] MEDICAL IMAGING REPORT Page 1 of 1 COPY
--- NOTE | ~2016-07-26 | CO ---
Unit #: [id number] #: [id number] Patient: TIA VALLECILLO [id number] [facility] [address]. [place], [place] [address] [id number] I MR#: [id number] NAME: TIA VALLECILLO ROOM: 240 Age: 25 Sex: F Admission Date: 07/26/2016 : 1990 Attending Physician: Nely Nielsen M.D. Primary Care Physician: No Primary Care Physician Consultation Date: 08/07/2016 CONSULTATION REPORT REASON FOR CONSULTATION Followup. DISCUSSION Ms. Tia Vallecillo is a 25-year-old female seen in room 240, bed 1 on August 07, 2016 at [facility]. Patient compliant, cooperative with interview but mood is sad, dysphoric, poor eye contact, withdrawn, flat. Reports still having trouble sleeping. No side effect from medication. Denied any suicidal or homicidal ideation. Patient has been noncompliant with vital signs and other therapy. Patient's oxygen saturation is 98%. REVIEW OF SYSTEMS Complete review of systems is unremarkable. MENTAL STATUS EXAMINATION General appearance: Patient dressed in hospital attire, lying comfortably in bed, withdrawn, isolated, flat. Attention span and concentration poor. Speech: Regular rate. Oriented in place and person. Mood and affect sad, depressed. Thought process coherent. Thought content: Patient denied any thoughts of harming self or others but somewhat guarded, paranoid. Recent and remote memory fair. Language intact. Fund of knowledge fair. Insight and judgment fair to slightly impaired. DIAGNOSES PSYCHIATRIC: Opiate use disorder, severe, F11.20. Major depressive disorder, recurrent, severe, F33.0. ASSESSMENT AND PLAN 1. Supportive psychotherapy and psychoeducation provided to patient. 2. Educated about benefits and side effects of medication and course and prognosis of illness. 3. Advise to continue with current medications. If needed, consider further adjustment of medications. Dictated by... Luisito Jeong M.D. Yanelis Unit #: [id number] #: [id number] Patient: TIA VALLECILLO TD: 08/09/2016 09:04 JOB #: [id number] CONSULTATION REPORT Page 1 of 1 X Luisito Jeong MD CONSULTATION REPORT
--- NOTE | ~2016-07-26 | CO ---
Unit #: [id number] #: [id number] Patient: TIA VALLECILLO [id number] [address] [place], [place] [address] [id number] I MR#: [id number] NAME: TIA VALLECILLO ROOM: 240 Age: 25 Sex: F Admission Date: 07/26/2016 : 1990 Attending Physician: Nely Nielsen M.D. Consultation Date: 08/02/2016 CONSULTATION REPORT REASON FOR CONSULTATION Followup. DISCUSSION Ms. Tia Vallecillo is a 25-year-old white female, seen in room 240, bed 1 on 08/02/2016 at [facility]. The patient was in a good mood. Affect was brighter. The patient reports that her anxiety is improving, sleeping good. Denied any suicidal or homicidal ideation. Denied any psychotic symptoms. Tolerating medications fairly well. Wanted her less Seroquel to be increased. The patient's vital signs; temperature 98.0, pulse 106, respirations 16, blood pressure 103/49, oxygen saturation 99%. REVIEW OF SYSTEMS Complete review of systems unremarkable. MENTAL STATUS EXAMINATION General appearance, the patient dressed casually in hospital attire, sitting comfortably in bed. The patient has family members in the room. Attention span and concentration, fair. Speech, regular rate and coherent. Oriented in time, place, and person. Mood and affect; labile. Thought process, coherent. Thought content, the patient denied any thoughts of harming self or others or any psychotic symptom. Recent and remote memory, fair. Language, intact. Fund of knowledge, fair. Insight and judgment, fair to slightly impaired. DIAGNOSES 1. Major depressive disorder, recurrent, severe, F33.2. 2. Cannabis abuse, moderate, F12.20. 3. Opioid use disorder, severe, F11.20. ASSESSMENT/PLAN 1. Supportive psychotherapy and psychoeducation were provided to the patient. 2. Educated about benefits and side effects of medication and course and prognosis of illness. 3. Advised to continue with current medication. If needed, consider further adjustment of medication. The patient to follow up in [facility] program upon discharge. The patient was also given crisis line #[phone] and advised to call if any question, telephone #[phone]. Dictated by... Unit #: [id number] #: [id number] Patient: VALLECILLOTIA M.D. SZC/lorenzo TD: 08/04/2016 08:18 JOB #: [id number] CONSULTATION REPORT Page 1 of 1 X Luisito Jeong MD CONSULTATION REPORT
--- NOTE | ~2016-07-26 | FU ---
[facility] Nutrition Therapy DATE: 08/14/16 Patient: TIA VALLECILLO Physician: ZAC Address: [address] Room/Bed: [address] [place] [address], Zip: [place] [address] Admit Date: 07/26/16 Date of : [birth year] Height: 5 9 Weight: 189 86.18 NUTRITION MONITORING/FOLLOW-UP: Reason: Nutrition follow-up Admitting Dx: 25 y/o female admitted with endocarditis 2' IV drug abuse Anthropometrics: Ht: 69", Wt: 190 lbs (no updated weight since admission), BMI: 28 (overweight) Labs: Most recent labs on 08/11 WNL Meds: Zofran prn, IV Abx, psych meds noted GI: Last BM 08/12, WNL Skin: WNL, no edema Assessment: Chart reviewed, events noted. See admitting dx above. No updated weight since admission. Patient continues to tolerate regular diet with good oral intake, 75-100% of meals. No need for diet education as she is on an unrestricted diet. No new labs since 08/11 (WNL). Dr. Jeong continues to follow, patient is refusing rehab at [facility] and is not appropriate for [place]. [facility] as she is on parole, but will have to be closely monitored due to IV drug hx and having IV access for Abx which are needed to treat her endocarditis. See recs below. Dx: No nutrition diagnosis Intervention: None needed at this time Monitoring, Evaluation and Goals: 1. PO intake > 50% of meals - MET 2. GI function WNL - MET No new nutritional goals Monitor: Per protocol Recommendations: Continue regular diet. Status: Not at nutritional risk [facility] Nutrition Therapy DATE: 08/14/16 Patient: TIA VALLECILLO Physician: ZAC Address: [address] Room/Bed: [address] [place] [address], Zip: [place] [address] Admit Date: 07/26/16 Date of : [birth year] Height: 5 9 Weight: 189 86.18 Respectfully, Rupinder Johnson RD, LD [facility] cc: client file
--- NOTE | ~2016-07-26 | CO ---
Unit #: [id number] #: [id number] Patient: TIA VALLECILLO [id number] [facility] [address] [place] [address]. [place], [place] [address] [id number] I MR#: [id number] NAME: TIA VALLECILLO ROOM: 240 Age: 25 Sex: F Admission Date: 07/26/2016 : 1990 Attending Physician: Nely Nielsen M.D. Primary Care Physician: Primary Care Physician No Consultation Date: 08/12/2016 CONSULTATION REPORT DISCUSSION Ms. Tia Vallecillo is a 25-year-old white female, seen in room 240, bed 1 on 08/12/2016 at [facility]. The patient's mood is sad, dysphoric, withdrawn, isolative, made poor eye contact. The patient denied any thoughts of harming self or others, but reported having problem with sleep, anxiety, mood lability. Denied any psychotic symptom or any suicidal ideation. Vital signs, the patient refused. REVIEW OF SYSTEMS Complete review of systems unremarkable. MENTAL STATUS EXAMINATION General appearance, the patient is moderately obese, dressed casually, lying comfortably in bed. Made poor eye contact, somewhat irritable. Attention span and concentration, fair. The patient's speech, irregular rate. Oriented in time, place, and person. Mood and affect, sad, dysphoric, irritable. Thought process, coherent. Thought content, the patient denied any thoughts of harming self or others, but somewhat guarded. Denied any hallucination. Recent and remote memory, fair. Language, intact. Fund of knowledge, fair to slightly impaired. Insight and judgment, fair to slightly impaired. DIAGNOSES Psychiatric: Opioid use disorder, severe, F11.20; major depressive disorder, recurrent, severe, F33.2. ASSESSMENT AND PLAN 1. Supportive psychotherapy and psychoeducation provided to the patient. 2. Educated about benefits and side effects of medication and course and prognosis of illness. If needed, consider further adjustment of medication. refuse and recycling worker is currently working on the patient's placement to get IV therapy. The patient is still refusing to go to [facility] for rehab, currently looking for alternative placement. According to the social security benefits interviewer report, the patient is also on parole. refuse and recycling worker will explore more about this. We are still recommending the patient to go to [facility] for treatment. Dictated by... Parth Escalona/lorenzo TD: 08/14/2016 04:20 Unit #: [id number] #: [id number] Patient: TIA VALLECILLO JOB #: [id number] CONSULTATION REPORT Page 1 of 1 X Luisito Jeong MD X CONSULTATION REPORT
--- NOTE | ~2016-07-26 | CO ---
Unit #: [id number] #: [id number] Patient: TIA VALLECILLO [id number] [address] [place], [place] [address] [id number] I MR#: [id number] NAME: TIA VALLECILLO. ROOM: 240 Age: 25 Sex: F Admission Date: 07/26/2016 : 1990 Attending Physician: Nely Nielsen M.D. Consultation Date: 08/17/2016 CONSULTATION REPORT DISCUSSION Ms. Kate Vallecillo is a 25-year-old female, seen on 08/17/2016 in room 240, bed 1 at [facility]. The patient continues to be withdrawn, isolative, flat affect, poor eye contact, answered question in short sentences. The patient denied any thoughts of harming self or others or any psychotic symptom. The patient continues to report in pain and anxiety. The patient's vital signs stable, but refusing. The patient's heart rate is 80. No agitation. Compliant with medication. REVIEW OF SYSTEMS Complete review of systems is unremarkable. MENTAL STATUS EXAMINATION General appearance; the patient dressed in hospital attire. Attention span and concentration, fair. Speech, regular rate. Oriented in time, place, and person. Mood and affect, sad and dysphoric. Thought process, goal directed. Thought content, the patient denied any thoughts of harming self or others. Recent and remote memory, fair to poor. Recent and remote memory, fair. Language, intact. Fund of knowledge, fair. Insight and judgment, fair to slightly impaired. DIAGNOSES Psychiatric: 1. Opioid use disorder, severe, F11.20. 2. Major depressive disorder, recurrent, severe F33.2. ASSESSMENT/PLAN 1. Supportive psychotherapy and psychoeducation provided to the patient. 2. Educated about benefits and side effects of medication and course and prognosis of illness. 3. Advised to continue with current combination of medication. If needed, consider further adjustment of medication. Please feel free to call if any questions, telephone #[phone]. Dictated by... Luisito Jeong M.D. PB/lorenzo TD: 08/17/2016 23:27 JOB #: [id number] Unit #: [id number] #: [id number] Patient: TIA VALLECILLO CONSULTATION REPORT Page 1 of 1 X Luisito Jeong MD CONSULTATION REPORT
--- NOTE | ~2016-07-26 | CO ---
Unit #: [id number] #: [id number] Patient: TIA VALLECILLO [id number] [address] [address] [id number] I MR#: [id number] NAME: TIA VALLECILLO. ROOM: 474 Age: 26 Sex: F Admission Date: 07/26/2016 : 1990 Attending Physician: Nely Nielsen M.D. Consultation Date: 08/25/2016 CONSULTATION REPORT DISCUSSION Ms. Tia Vallecillo is a 26-year-old female, seen in room 474, bed 1 on 08/25/2016. The patient dressed casually, lying comfortably in bed, eating her breakfast. The patient reports that she is feeling better, but still concerned about her PTSD and would like to get some help after she is discharged. The patient is compliant with medication. Denied any thoughts of harming self or others or any psychotic symptom. The patient's vital signs; the patient uncooperative with that but this morning temperature 98.1, pulse 75, respirations 22, blood pressure 110/66, and oxygen saturation 98%. MENTAL STATUS EXAMINATION General appearance; the patient dressed casually, sitting in her bed comfortably. Attention and concentration, fair. Speech; regular rate and coherent. Oriented in time, place, and person. Mood and affect; labile, sad, dysphoric. Thought process, coherent. Thought content, the patient denied any thoughts of harming self or others or any hallucination. Recent and remote memory, fair. Language, intact. Fund of knowledge, fair to slightly impaired. Insight and judgment, fair to poor. DIAGNOSES Psychiatric: Major depressive disorder, recurrent, severe, F33.2; opioid use disorder, severe, F11.20. ASSESSMENT/PLAN 1. Supportive psychotherapy and psychoeducation provided to the patient. 2. Educated about benefits and side effects of medication and course and prognosis of illness. 3. Advised to continue with current combination of medication. If needed, consider further adjustment of medication. Please feel free to call if any question, telephone #[phone]. Dictated by... Luisito Jeong M.D. PB/lorenzo TD: 08/26/2016 00:34 JOB #: [id number] Unit #: [id number] #: [id number] Patient: TIA VALLECILLO CONSULTATION REPORT Page 1 of 1 X Luisito Jeong MD CONSULTATION REPORT
[~2016-07-26 19:03] MED LIST changes: +ALBUTEROL17 GM PO; +AZITHROMYCIN250 MG PO; +MACROBID100 M1 PO; +MUCINEX DM ER1 EACH PO
[2016-07-26 22:38] LABS: BASOPHIL% 0.2 % (0-2.5); EOSINOPHIL% 0.3 % (0.0-7.0); HEMATOCRIT 31.3 % (35.0-45.0); HEMOGLOBIN 10.2 gm/dL (12.0-16.0); LYMPHOCYTE# 1.2 X10e3 (1.0-3.5); LYMPHOCYTE% 15.1 % (17.0-45.0); MEAN CELL VOLUME 87.9 FL (83-96); MEAN CORPUSCULAR HEMOGLOBIN 28.6 PG (28-34); MEAN CORPUSCULAR HGB CONC 32.5 g/dL (30-36); MEAN PLATELET VOLUME 8.8 FL (6.5-11.5); MONOCYTE# 0.5 X10e3 (0-1.0); MONOCYTE% 5.4 % (3.0-12.0); NEUTROPHIL# 6.5 X10e3 (1.5-7.1); PLATELET COUNT 175 X10e3 (140-420); RED BLOOD COUNT 3.56 X10e (3.90-5.30); RED CELL DISTRIBUTION WIDTH 13.2 % (11.0-15.5); WHITE BLOOD COUNT 8.3 X10e3 (4.0-10.5)
[2016-07-26 22:39] LABS: DIFF IND NO
[2016-07-26 23:01] LABS: ALBUMIN SERUM 2.9 g/dL (3.5-5.0); BILIRUBIN, DIRECT 0.1 mg/dL (0.0-0.2); BILIRUBIN,INDIRECT 0.4 mg/dL (0.0-0.9); BILIRUBIN,TOTAL 0.5 mg/dL (0.2-2.0); BUN/CREATININE RATIO 17.5; CALCIUM SERUM 8.4 mg/dL (8.4-10.2); CREATININE SERUM 0.4 mg/dL (0.6-1.4); GLOM FILT RATE Estimated 146.8 mL/min (>60); POTASSIUM 3.6 mmol/L (3.5-5.1); PROTEIN TOTAL SERUM 7.6 g/dL (6.0-8.3)
[2016-07-26 23:39] LABS: AMPHETAMINE NEG (NEG); BARBITURATES NEG (NEG); BENZODIAZEPINES NEG (NEG); COCAINE NEG (NEG); MARIJUANA POS (NEG); OPIATES NEG (NEG); TRICYCLIC ANTIDEPRESSANTS NEG (NEG); U METHADONE NEG (NEG)
[2016-07-27 10:10] LABS: BASOPHIL# 0.1 X10e3 (0-0.3); BASOPHIL% 1.2 % (0-2.5); EOSINOPHIL% 0.3 % (0.0-7.0); HEMOGLOBIN 9.2 gm/dL (12.0-16.0); LYMPHOCYTE# 1.2 X10e3 (1.0-3.5); LYMPHOCYTE% 16.6 % (17.0-45.0); MEAN CELL VOLUME 86.8 FL (83-96); MEAN CORPUSCULAR HEMOGLOBIN 28.6 PG (28-34); MEAN CORPUSCULAR HGB CONC 32.9 g/dL (30-36); MEAN PLATELET VOLUME 8.8 FL (6.5-11.5); MONOCYTE# 0.4 X10e3 (0-1.0); MONOCYTE% 6.2 % (3.0-12.0); NEUTROPHIL# 5.3 X10e3 (1.5-7.1); NEUTROPHIL% 75.7 % (40-75); PLATELET COUNT 163 X10e3 (140-420); RED BLOOD COUNT 3.23 X10e (3.90-5.30); WHITE BLOOD COUNT 7.1 X10e3 (4.0-10.5)
[2016-07-27 10:11] LABS: DIFF IND NO
[2016-07-27 10:42] LABS: CALCIUM SERUM 8.5 mg/dL (8.4-10.2); CREATININE SERUM 0.4 mg/dL (0.6-1.4); GLOM FILT RATE Estimated 146.8 mL/min (>60); POTASSIUM 4.1 mmol/L (3.5-5.1)
[2016-07-28 06:57] LABS: HEMOGLOBIN 9.8 gm/dL (12.0-16.0); MEAN CELL VOLUME 87.3 FL (83-96); MEAN CORPUSCULAR HEMOGLOBIN 28.6 PG (28-34); MEAN CORPUSCULAR HGB CONC 32.7 g/dL (30-36); MEAN PLATELET VOLUME 8.6 FL (6.5-11.5); RED BLOOD COUNT 3.43 X10e (3.90-5.30); RED CELL DISTRIBUTION WIDTH 13.3 % (11.0-15.5); WHITE BLOOD COUNT 5.6 X10e3 (4.0-10.5)
[2016-07-28 07:31] LABS: ALBUMIN SERUM 2.4 g/dL (3.5-5.0); BILIRUBIN,TOTAL 0.7 mg/dL (0.2-2.0); CREATININE SERUM 0.4 mg/dL (0.6-1.4); GLOM FILT RATE Estimated 146.8 mL/min (>60); POTASSIUM 3.7 mmol/L (3.5-5.1); PROTEIN TOTAL SERUM 6.7 g/dL (6.0-8.3)
[2016-07-31 15:26] LABS: BASOPHIL# 0.1 X10e3 (0-0.3); BASOPHIL% 1.4 % (0-2.5); EOSINOPHIL# 0.1 X10e3 (0-0.7); EOSINOPHIL% 1.4 % (0.0-7.0); HEMATOCRIT 30.7 % (35.0-45.0); HEMOGLOBIN 10.2 gm/dL (12.0-16.0); LYMPHOCYTE# 1.6 X10e3 (1.0-3.5); LYMPHOCYTE% 21.7 % (17.0-45.0); MEAN CORPUSCULAR HGB CONC 33.3 g/dL (30-36); MEAN PLATELET VOLUME 7.7 FL (6.5-11.5); MONOCYTE# 0.5 X10e3 (0-1.0); MONOCYTE% 7.4 % (3.0-12.0); NEUTROPHIL% 68.1 % (40-75); PLATELET COUNT 247 X10e3 (140-420); RED BLOOD COUNT 3.53 X10e (3.90-5.30); RED CELL DISTRIBUTION WIDTH 13.3 % (11.0-15.5); WHITE BLOOD COUNT 7.3 X10e3 (4.0-10.5)
[2016-07-31 15:29] LABS: DIFF IND NO
[2016-07-31 15:55] LABS: ALBUMIN SERUM 2.7 g/dL (3.5-5.0); BILIRUBIN,TOTAL 0.6 mg/dL (0.2-2.0); BUN/CREATININE RATIO 11.42; CALCIUM SERUM 8.3 mg/dL (8.4-10.2); CREATININE SERUM 0.7 mg/dL (0.6-1.4); GLOM FILT RATE Estimated 122.1 mL/min (>60); POTASSIUM 3.7 mmol/L (3.5-5.1); PROTEIN TOTAL SERUM 6.9 g/dL (6.0-8.3)
[2016-08-01 06:08] LABS: CALCIUM SERUM 8.3 mg/dL (8.4-10.2); CREATININE SERUM 0.6 mg/dL (0.6-1.4); GLOM FILT RATE Estimated 128.5 mL/min (>60); POTASSIUM 4.4 mmol/L (3.5-5.1)
[2016-08-02 07:00] LABS: HEMOGLOBIN 8.5 gm/dL (12.0-16.0); MEAN CELL VOLUME 88.6 FL (83-96); MEAN CORPUSCULAR HEMOGLOBIN 28.9 PG (28-34); MEAN CORPUSCULAR HGB CONC 32.7 g/dL (30-36); MEAN PLATELET VOLUME 7.9 FL (6.5-11.5); RED BLOOD COUNT 2.93 X10e (3.90-5.30); RED CELL DISTRIBUTION WIDTH 13.4 % (11.0-15.5); WHITE BLOOD COUNT 4.1 X10e3 (4.0-10.5)
[2016-08-02 07:32] LABS: BUN/CREATININE RATIO 11.42; CALCIUM SERUM 7.8 mg/dL (8.4-10.2); CREATININE SERUM 0.7 mg/dL (0.6-1.4); GLOM FILT RATE Estimated 122.1 mL/min (>60); POTASSIUM 3.2 mmol/L (3.5-5.1)
[2016-08-03 06:59] LABS: HEMATOCRIT 27.2 % (35.0-45.0); HEMOGLOBIN 8.9 gm/dL (12.0-16.0); MEAN CELL VOLUME 88.5 FL (83-96); MEAN CORPUSCULAR HGB CONC 32.7 g/dL (30-36); RED BLOOD COUNT 3.08 X10e (3.90-5.30); RED CELL DISTRIBUTION WIDTH 13.5 % (11.0-15.5); WHITE BLOOD COUNT 3.6 X10e3 (4.0-10.5)
[2016-08-03 08:01] LABS: CALCIUM SERUM 8.3 mg/dL (8.4-10.2); CREATININE SERUM 0.6 mg/dL (0.6-1.4); GLOM FILT RATE Estimated 128.5 mL/min (>60); MAGNESIUM 1.8 mg/dL (1.6-3.0); PHOSPHOROUS 2.7 mg/dL (2.5-4.6); POTASSIUM 3.5 mmol/L (3.5-5.1)
[2016-08-05 05:50] LABS: HEMATOCRIT 26.8 % (35.0-45.0); HEMOGLOBIN 8.8 gm/dL (12.0-16.0); MEAN CELL VOLUME 87.6 FL (83-96); MEAN CORPUSCULAR HEMOGLOBIN 28.8 PG (28-34); MEAN CORPUSCULAR HGB CONC 32.9 g/dL (30-36); MEAN PLATELET VOLUME 7.7 FL (6.5-11.5); RED BLOOD COUNT 3.06 X10e (3.90-5.30); RED CELL DISTRIBUTION WIDTH 13.8 % (11.0-15.5)
[2016-08-05 06:16] LABS: BUN/CREATININE RATIO 14.28; CALCIUM SERUM 8.3 mg/dL (8.4-10.2); CREATININE SERUM 0.7 mg/dL (0.6-1.4); GLOM FILT RATE Estimated 122.1 mL/min (>60); POTASSIUM 3.8 mmol/L (3.5-5.1)
[2016-08-06 05:56] LABS: HEMOGLOBIN 9.7 gm/dL (12.0-16.0); MEAN CELL VOLUME 88.7 FL (83-96); MEAN CORPUSCULAR HEMOGLOBIN 28.8 PG (28-34); MEAN CORPUSCULAR HGB CONC 32.4 g/dL (30-36); MEAN PLATELET VOLUME 7.8 FL (6.5-11.5); RED BLOOD COUNT 3.39 X10e (3.90-5.30); WHITE BLOOD COUNT 2.9 X10e3 (4.0-10.5)
[2016-08-10 20:25] LABS: AMPHETAMINE NEG (NEG); BARBITURATES NEG (NEG); BENZODIAZEPINES NEG (NEG); COCAINE NEG (NEG); MARIJUANA NEG (NEG); OPIATES NEG (NEG); TRICYCLIC ANTIDEPRESSANTS NEG (NEG); U METHADONE NEG (NEG)
[2016-08-11 14:05] LABS: HEMATOCRIT 29.7 % (35.0-45.0); HEMOGLOBIN 9.8 gm/dL (12.0-16.0); MEAN CELL VOLUME 90.1 FL (83-96); MEAN CORPUSCULAR HEMOGLOBIN 29.7 PG (28-34); RED BLOOD COUNT 3.29 X10e (3.90-5.30); RED CELL DISTRIBUTION WIDTH 14.9 % (11.0-15.5); WHITE BLOOD COUNT 2.7 X10e3 (4.0-10.5)
[2016-08-11 14:27] LABS: BUN/CREATININE RATIO 26.66; CALCIUM SERUM 8.5 mg/dL (8.4-10.2); CREATININE SERUM 0.6 mg/dL (0.6-1.4); GLOM FILT RATE Estimated 128.5 mL/min (>60); POTASSIUM 4.1 mmol/L (3.5-5.1)
[2016-08-18 05:21] LABS: HEMOGLOBIN 9.3 gm/dL (12.0-16.0); MEAN CELL VOLUME 92.3 FL (83-96); MEAN CORPUSCULAR HEMOGLOBIN 30.6 PG (28-34); MEAN CORPUSCULAR HGB CONC 33.2 g/dL (30-36); MEAN PLATELET VOLUME 7.2 FL (6.5-11.5); RED BLOOD COUNT 3.04 X10e (3.90-5.30); RED CELL DISTRIBUTION WIDTH 20.3 % (11.0-15.5); WHITE BLOOD COUNT 2.6 X10e3 (4.0-10.5)
[2016-08-18 06:08] LABS: BUN/CREATININE RATIO 22.85; CALCIUM SERUM 8.4 mg/dL (8.4-10.2); CREATININE SERUM 0.7 mg/dL (0.6-1.4); GLOM FILT RATE Estimated 122.1 mL/min (>60); POTASSIUM 4.2 mmol/L (3.5-5.1)
[2016-08-19 06:53] LABS: HEMATOCRIT 29.6 % (35.0-45.0); HEMOGLOBIN 9.9 gm/dL (12.0-16.0); MEAN CELL VOLUME 91.7 FL (83-96); MEAN CORPUSCULAR HEMOGLOBIN 30.8 PG (28-34); MEAN CORPUSCULAR HGB CONC 33.5 g/dL (30-36); MEAN PLATELET VOLUME 7.3 FL (6.5-11.5); RED BLOOD COUNT 3.23 X10e (3.90-5.30); RED CELL DISTRIBUTION WIDTH 21.3 % (11.0-15.5); WHITE BLOOD COUNT 2.9 X10e3 (4.0-10.5)
[2016-08-21 02:02] LABS: HEMATOCRIT 30.8 % (35.0-45.0); HEMOGLOBIN 10.4 gm/dL (12.0-16.0); MEAN CELL VOLUME 91.5 FL (83-96); MEAN CORPUSCULAR HGB CONC 33.8 g/dL (30-36); MEAN PLATELET VOLUME 7.2 FL (6.5-11.5); RED BLOOD COUNT 3.37 X10e (3.90-5.30); RED CELL DISTRIBUTION WIDTH 21.5 % (11.0-15.5); WHITE BLOOD COUNT 3.3 X10e3 (4.0-10.5)
[2016-08-26 04:25] LABS: HEMATOCRIT 32.8 % (35.0-45.0); HEMOGLOBIN 10.9 gm/dL (12.0-16.0); MEAN CORPUSCULAR HEMOGLOBIN 30.5 PG (28-34); MEAN CORPUSCULAR HGB CONC 33.2 g/dL (30-36); MEAN PLATELET VOLUME 7.6 FL (6.5-11.5); RED BLOOD COUNT 3.57 X10e (3.90-5.30); RED CELL DISTRIBUTION WIDTH 21.8 % (11.0-15.5); WHITE BLOOD COUNT 2.9 X10e3 (4.0-10.5)
[2016-08-26 04:49] LABS: BUN/CREATININE RATIO 15.71; CALCIUM SERUM 8.3 mg/dL (8.4-10.2); CREATININE SERUM 0.7 mg/dL (0.6-1.4); GLOM FILT RATE Estimated 121.3 mL/min (>60)
[2016-08-27] MEDS ORDERED: ACETAMINOPHEN325 MG PO (10:53)
[2016-08-27] MEDS ORDERED: GABAPENTIN600 MG PO (10:53)
[2016-08-27] MEDS ORDERED: CELEXA20 MG (10:54)
[2016-08-27] MEDS ORDERED: SEROQUEL100 MG PO (10:55)
== END 2016-08-27 12:43 | disposition home or self-care (01) | DRG 871 ==
LOC: CED 19:03 → C2A 23:00 → CEDOF 23:00 → CED 23:02 → CEDOF 23:52 → C2A 23:52 → C4C 08-20 17:39
PROVIDERS: Emergency Medicine; Family Medicine; Internal Medicine; Nurse Practitioner Family
PROC: 02HV33Z Insertion of Infusion Device into Superior Vena Cava, Percutaneous Approach (ICD-10-PCS; principal; 2016-07-31)
PROC: B518YZA Fluoroscopy of Superior Vena Cava using Other Contrast, Guidance (ICD-10-PCS; 2016-07-31)
PROC: B548ZZA Ultrasonography of Superior Vena Cava, Guidance (ICD-10-PCS; 2016-07-31)
DX: A41.01 Sepsis due to Methicillin susceptible Staphylococcus aureus (principal); I33.0 Acute and subacute infective endocarditis; I26.90 Septic pulmonary embolism without acute cor pulmonale; F33.2 Major depressive disorder, recurrent severe without psychotic features; F11.20 Opioid dependence, uncomplicated; B95.61 Methicillin susceptible Staphylococcus aureus infection as the cause of diseases classified elsewhere; B19.20 Unspecified viral hepatitis C without hepatic coma; F17.210 Nicotine dependence, cigarettes, uncomplicated; Z91.19 Patient's noncompliance with other medical treatment and regimen; F41.9 Anxiety disorder, unspecified; F12.20 Cannabis dependence, uncomplicated; E66.9 Obesity, unspecified; Z68.28 Body mass index [BMI] 28.0-28.9, adult
CPT/HCPCS: 36415; 71010; 76937; 77001; 80048; 80053; 80076; 80202; 80307; 82150; 83690; 83735; 84100; 84703; 85025; 85027; 87040; 87186; 93005; 94640; 94760; 99285; C1725; C1751; J1642; J1650; J1885; J2020; J2060; J2405; J2930; J2997; J3370; Q9967